=== PATIENT | male | born 1945 | race Caucasian/White ===

== ENCOUNTER 2017-11-06 16:37 | Inpatient (IN) | payer MEDICARE, OTHER ==
[2017-11-06] MEDS: IPRATROPIUM (NEB) 0.5 MG/2.5 ML AMP INH (17:04)
[2017-11-06] MEDS: ALBUTEROL 0.5% (NEB) 2.5 MG/0.5 ML AMP INH ×2 (17:04→18:30)
[2017-11-06 17:16] LABS: ADD MAN DIFF? NO
[2017-11-06 17:18] LABS: WHITE BLOOD COUNT 6.1 10^3/ul (4.8-10.8)
[2017-11-06 17:19] LABS: BASOPHILS % 0.2 % (0.0-2.0); EOSINOPHILS # 0.1 10^3/ul (0.0-0.5); EOSINOPHILS % 1.6 % (0.0-7.0); HEMATOCRIT 40.7 % (42.0-52.0); HEMOGLOBIN 12.9 g/dl (14.0-18.0); LYMPHOCYTES # 1.2 10^3/ul (0.8-2.9); LYMPHOCYTES % 18.8 % (15.0-51.0); MEAN CORPUSCULAR HEMOGLOBIN 28.7 pg (29.0-33.0); MEAN CORPUSCULAR HGB CONC 31.7 g/dl (32.0-37.0); MEAN CORPUSCULAR VOLUME 90.4 fl (82.0-101.0); MEAN PLATELET VOLUME 10.6 fl (7.4-10.4); MONOCYTES % 16.6 % (0.0-11.0); NEUTROPHIL # 3.8 10^3/ul (1.6-7.5); NEUTROPHILS % 62.3 % (39.0-77.0); PLATELET COUNT 202 10^3/UL (140-415)
[2017-11-06 17:25] LABS: ALANINE AMINOTRANSFERASE 29 IU/L (13-69); ALBUMIN 3.9 g/dl (3.3-4.9); ALKALINE PHOSPHATASE 80 IU/L (42-121); ANION GAP 18 (8-16); ASPARTATE AMINO TRANSFERASE 30 IU/L (15-46); BILIRUBIN,INDIRECT 0.1 mg/dl (0-1.1); BILIRUBIN,TOTAL 0.1 mg/dl (0.2-1.3); BLOOD UREA NITROGEN 28 mg/dl (7-20); CALCIUM 9.5 mg/dl (8.4-10.2); CARBON DIOXIDE 32 mmol/L (21-31); CHLORIDE 99 mmol/L (97-110); CREATININE 0.93 mg/dl (0.61-1.24); GLUCOSE 125 mg/dl (70-220); LIPASE 104 U/L (23-300); POTASSIUM 4.8 mmol/L (3.5-5.1); SODIUM 144 mmol/L (135-144); TOTAL PROTEIN 7.8 g/dl (6.1-8.1)
[2017-11-06 17:37] LABS: B-TYPE NATRIURETIC PEPTIDE 128 PG/ML (0-125); TROPONIN-I < 0.012 ng/ml (0.000-0.120)
[2017-11-06] MEDS: LEVOFLOXACIN 750MG/D5W (PMX) 150 ML IVPB (18:33)
[2017-11-06] MEDS: METHYLPREDNISOLONE 125 MG INJ IV (18:33)
[2017-11-06] MEDS ORDERED: GLUCOSE GEL 15 GRAM TUBE BUCCAL (22:30)
[2017-11-06] MEDS ORDERED: DEXTROSE 50% 50 ML SYRINGE IV ×2 (22:30)
[2017-11-06] MEDS ORDERED: ACETAMINOPHEN 325 MG TAB PO (22:30)
[2017-11-06] MEDS ORDERED: GLUCOSE GEL 15 GRAM TUBE PO ×2 (22:30)
[2017-11-06] MEDS ORDERED: GLUCAGON 1 MG INJ IM (22:30)
[2017-11-06] MEDS: SOD CHLORIDE 0.45% 1,000 ML IV (23:01)
[2017-11-06 23:56] LABS: AADO2 Arterial 270.2 mmHg (7.0-24.0); Allen Test ACCEPTAB; Arterial Base Excess -3.8 mmol/L (-3.0-3); Arterial COHb 0.3 % (0.0-3.0); Arterial Fraction of Oxyhgb 95.4 % (93.0-99.0); Arterial HCO3 22.2 mmol/L (22.0-26.0); Arterial MetHb 0.3 % (0.0-1.5); Arterial Total Hemglobin 13.3 g/dl (12.0-18.0); Arterial pCO2 43.8 mmhg (35-45); MODE MASK - SIMPLE; Site Right Radial
[2017-11-07] MEDS: INSULIN ASPART [NOVOLOG] 3 ML PEN SC ×5 (00:03→21:05)
[2017-11-07] MEDS: ALBUTEROL/IPRATROPIUM (NEB) 3 ML AMP HHN ×4 (01:28→21:03)
[2017-11-07] MEDS: ACCU-CHEK XX (02:04)
[2017-11-07 07:29] LABS: ANION GAP 18 (8-16); BLOOD UREA NITROGEN 25 mg/dl (7-20); CALCIUM 8.9 mg/dl (8.4-10.2); CARBON DIOXIDE 26 mmol/L (21-31); CHLORIDE 99 mmol/L (97-110); CREATININE 0.62 mg/dl (0.61-1.24); GLUCOSE 260 mg/dl (70-220); POTASSIUM 5.3 mmol/L (3.5-5.1); SODIUM 138 mmol/L (135-144)
[2017-11-07] MEDS ORDERED: LEVETIRACETAM 750 MG TAB PO (09:00)
[2017-11-07] MEDS: ASPIRIN 81 MG TAB PO (09:15)
[2017-11-07] MEDS: ARTIFICIAL TEARS 15 ML OPH BOTH EYES ×2 (09:15→20:51)
[2017-11-07] MEDS: ESCITALOPRAM 10 MG TAB PO (09:15)
[2017-11-07] MEDS: metFORMIN 500 MG TAB PO ×2 (09:15→17:38)
[2017-11-07] MEDS: MEMANTINE 10 MG TAB PO (09:15)
[2017-11-07] MEDS: METHYLPREDNISOLONE 40 MG INJ IV ×2 (09:16→20:51)
[2017-11-07] MEDS: QUETIAPINE 25 MG TAB PO (09:16)
[2017-11-07] MEDS: LEVETIRACETAM (100 MG/ML) 5ML CUP PO ×2 (09:16→20:52)
[2017-11-07] MEDS: LISINOPRIL 5 MG TAB PO (09:17)
[2017-11-07] MEDS: DILTIAZEM (CD) 180 MG CAP PO (09:17)
[2017-11-07] MEDS: ENOXAPARIN 40 MG/0.4 ML SYG SC (09:36)
[2017-11-07] MEDS ORDERED: VANCOMYCIN IV PER PHARMACY XX (11:00)
[2017-11-07] MEDS: METOPROLOL 5 MG INJ IV (12:47)
[2017-11-07] MEDS: VANCOMYCIN 2 GM in SOD CHLORIDE 0.9% 500 ML IVPB (14:00)
[2017-11-07] MEDS: MEROPENEM 1 GM/50ML(PMX) 50 ML IVPB ×2 (14:00→22:59)
[2017-11-07] MEDS: SOD CHLORIDE 0.45% 1,000 ML IV (15:36)
[2017-11-07] MEDS: FUROSEMIDE 20 MG INJ IV (16:51)
[2017-11-07] MEDS ORDERED: LEVOFLOXACIN 500MG/D5W (PMX) 100 ML IVPB (18:30)
[2017-11-07] MEDS: ATORVASTATIN 20 MG TAB PO (20:51)
[2017-11-07] MEDS: TAMSULOSIN (SR) 0.4 MG CAP PO (20:52)
[2017-11-07] MEDS: NPH, HUMAN INSULIN ISOPHANE 3ML VIAL SC (20:57)
[2017-11-07] MEDS: DONEPEZIL 10 MG TAB PO (20:58)
[2017-11-08] MEDS: ACCU-CHEK XX (02:15)
[2017-11-08] MEDS: ALBUTEROL/IPRATROPIUM (NEB) 3 ML AMP HHN ×3 (03:33→13:34)
[2017-11-08] MEDS: MEROPENEM 1 GM/50ML(PMX) 50 ML IVPB ×3 (05:15→21:16)
[2017-11-08] MEDS: metFORMIN 500 MG TAB PO ×2 (08:06→17:24)
[2017-11-08] MEDS: INSULIN ASPART [NOVOLOG] 3 ML PEN SC ×4 (08:07→21:15)
[2017-11-08] MEDS: NPH, HUMAN INSULIN ISOPHANE 3ML VIAL SC ×2 (08:10→21:17)
[2017-11-08 08:46] LABS: AADO2 Arterial 315.8 mmHg (7.0-24.0); Allen Test ACCEPTAB; Arterial Base Excess 2.6 mmol/L (-3.0-3); Arterial Blood Gas Oxygen Sat 98.2 mmHG (95.0-100.0); Arterial COHb 0.7 % (0.0-3.0); Arterial Fraction of Oxyhgb 97.1 % (93.0-99.0); Arterial HCO3 30.4 mmol/L (22.0-26.0); Arterial MetHb 0.4 % (0.0-1.5); Arterial Total Hemglobin 17.4 g/dl (12.0-18.0); Arterial pCO2 58.3 mmhg (35-45); MODE MASK - SIMPLE; Site Right Radial
[2017-11-08] MEDS ORDERED: DILTIAZEM (CD) 180 MG CAP PO (09:00)
[2017-11-08] MEDS: METHYLPREDNISOLONE 40 MG INJ IV ×2 (09:47→21:01)
[2017-11-08] MEDS: LEVETIRACETAM (100 MG/ML) 5ML CUP PO ×2 (09:48→21:01)
[2017-11-08] MEDS: QUETIAPINE 25 MG TAB PO (09:49)
[2017-11-08] MEDS: ASPIRIN 81 MG TAB PO (09:49)
[2017-11-08] MEDS: ESCITALOPRAM 10 MG TAB PO (09:49)
[2017-11-08] MEDS: MEMANTINE 10 MG TAB PO (09:49)
[2017-11-08] MEDS: LISINOPRIL 5 MG TAB PO (09:52)
[2017-11-08] MEDS: ARTIFICIAL TEARS 15 ML OPH BOTH EYES ×2 (09:52→21:01)
[2017-11-08] MEDS: ENOXAPARIN 40 MG/0.4 ML SYG SC (10:08)
[2017-11-08] MEDS: DILTIAZEM (CD) 240 MG CAP PO (11:22)
[2017-11-08] MEDS: VANCOMYCIN 1.5 GM in SOD CHLORIDE 0.9% 250 ML IVPB (13:00)
[2017-11-08] MEDS: METOPROLOL 5 MG INJ IV (16:21)
[2017-11-08] MEDS: TAMSULOSIN (SR) 0.4 MG CAP PO (21:01)
[2017-11-08] MEDS: ATORVASTATIN 20 MG TAB PO (21:01)
[2017-11-08] MEDS: DONEPEZIL 10 MG TAB PO (21:02)
[2017-11-09] MEDS: METOPROLOL 5 MG INJ IV ×3 (01:58→21:48)
[2017-11-09] MEDS: ACCU-CHEK XX (02:00)
[2017-11-09 02:42] LABS: ANION GAP 15 (8-16); BLOOD UREA NITROGEN 31 mg/dl (7-20); CALCIUM 8.9 mg/dl (8.4-10.2); CARBON DIOXIDE 29 mmol/L (21-31); CHLORIDE 103 mmol/L (97-110); CREATININE 0.67 mg/dl (0.61-1.24); GLUCOSE 185 mg/dl (70-220); POTASSIUM 5.3 mmol/L (3.5-5.1); SODIUM 142 mmol/L (135-144)
[2017-11-09] MEDS: MEROPENEM 1 GM/50ML(PMX) 50 ML IVPB ×3 (05:25→21:48)
[2017-11-09 07:13] LABS: HEMATOCRIT 37.4 % (42.0-52.0); HEMOGLOBIN 11.9 g/dl (14.0-18.0); MEAN CORPUSCULAR HEMOGLOBIN 28.1 pg (29.0-33.0); MEAN CORPUSCULAR HGB CONC 31.8 g/dl (32.0-37.0); MEAN CORPUSCULAR VOLUME 88.4 fl (82.0-101.0); MEAN PLATELET VOLUME 10.5 fl (7.4-10.4); PLATELET COUNT 214 10^3/UL (140-415); POSITIVE DIFF @See below; RED BLOOD COUNT 4.23 10^6/ul (4.70-6.10)
[2017-11-09 07:13] LABS: WHITE BLOOD COUNT 8.7 10^3/ul (4.8-10.8)
[2017-11-09 07:16] LABS: ADD MAN DIFF? YES
[2017-11-09 07:43] LABS: ANION GAP 15 (8-16); BLOOD UREA NITROGEN 30 mg/dl (7-20); CALCIUM 8.9 mg/dl (8.4-10.2); CARBON DIOXIDE 31 mmol/L (21-31); CHLORIDE 102 mmol/L (97-110); CREATININE 0.62 mg/dl (0.61-1.24); GLUCOSE 178 mg/dl (70-220); POTASSIUM 5.3 mmol/L (3.5-5.1); SODIUM 143 mmol/L (135-144)
[2017-11-09] MEDS: DILTIAZEM (CD) 240 MG CAP PO (08:13)
[2017-11-09] MEDS: ALBUTEROL/IPRATROPIUM (NEB) 3 ML AMP HHN ×3 (08:13→20:45)
[2017-11-09] MEDS: QUETIAPINE 25 MG TAB PO (08:13)
[2017-11-09] MEDS: MEMANTINE 10 MG TAB PO (08:13)
[2017-11-09] MEDS: LISINOPRIL 5 MG TAB PO (08:13)
[2017-11-09] MEDS: metFORMIN 500 MG TAB PO ×2 (08:14→18:05)
[2017-11-09] MEDS: ESCITALOPRAM 10 MG TAB PO (08:14)
[2017-11-09] MEDS: ASPIRIN 81 MG TAB PO (08:14)
[2017-11-09] MEDS: ARTIFICIAL TEARS 15 ML OPH BOTH EYES ×2 (08:15→21:31)
[2017-11-09] MEDS: METHYLPREDNISOLONE 40 MG INJ IV ×2 (08:15→21:31)
[2017-11-09] MEDS: LEVETIRACETAM (100 MG/ML) 5ML CUP PO ×2 (08:17→21:30)
[2017-11-09] MEDS: INSULIN ASPART [NOVOLOG] 3 ML PEN SC ×4 (08:21→21:41)
[2017-11-09] MEDS: ENOXAPARIN 40 MG/0.4 ML SYG SC (08:22)
[2017-11-09] MEDS: NPH, HUMAN INSULIN ISOPHANE 3ML VIAL SC ×2 (08:22→21:42)
[2017-11-09 09:53] LABS: BAND NEUTROPHILS #M 0.6 10^3/ul (0.0-0.6); BAND NEUTROPHILS % (M) 8 % (0-4); GIANT THROMBO% (M) 1 % (0-0); LYMPHOCYTES #M 0.5 10^3/ul (0.8-2.9); LYMPHOCYTES % (M) 6 % (15-51); MONOCYTE #M 0.6 10^3/ul (0.3-0.9); MONOCYTES % (M) 7 % (0-11); PLATELET ESTIMATE NORMAL; POIKILOCYTOSIS 1+ (0-0); POLYCHROMASIA 1+ (0-0); SEG NEUT #M 6.9 10^3/ul (1.6-7.5); SEGMENTED NEUTROPHILS (M) % 79 % (39-77); SMUDGE%M 75 % (0-0)
[2017-11-09] MEDS: VANCOMYCIN 1.5 GM in SOD CHLORIDE 0.9% 250 ML IVPB (12:13)
[2017-11-09] MEDS: ATORVASTATIN 20 MG TAB PO (21:30)
[2017-11-09] MEDS: TAMSULOSIN (SR) 0.4 MG CAP PO (21:30)
[2017-11-09] MEDS: DONEPEZIL 10 MG TAB PO (21:30)
[2017-11-10] MEDS: ALBUTEROL/IPRATROPIUM (NEB) 3 ML AMP HHN ×4 (01:55→19:25)
[2017-11-10] MEDS: ACCU-CHEK XX (02:00)
[2017-11-10] MEDS: GUAIFENESIN/CODEINE 5ML CUP PO (03:11)
[2017-11-10] MEDS: MEROPENEM 1 GM/50ML(PMX) 50 ML IVPB ×3 (05:31→21:25)
[2017-11-10 07:32] LABS: ADD MAN DIFF? NO
[2017-11-10 07:42] LABS: BASOPHILS % 0.4 % (0.0-2.0); HEMATOCRIT 36.4 % (42.0-52.0); HEMOGLOBIN 11.5 g/dl (14.0-18.0); LYMPHOCYTES # 0.9 10^3/ul (0.8-2.9); LYMPHOCYTES % 11.7 % (15.0-51.0); MEAN CORPUSCULAR HEMOGLOBIN 27.6 pg (29.0-33.0); MEAN CORPUSCULAR HGB CONC 31.6 g/dl (32.0-37.0); MEAN CORPUSCULAR VOLUME 87.5 fl (82.0-101.0); MEAN PLATELET VOLUME 9.9 fl (7.4-10.4); MONOCYTE # 0.7 10^3/ul (0.3-0.9); MONOCYTES % 9.2 % (0.0-11.0); NEUTROPHIL # 5.9 10^3/ul (1.6-7.5); NEUTROPHILS % 74.3 % (39.0-77.0); PLATELET COUNT 212 10^3/UL (140-415); RED BLOOD COUNT 4.16 10^6/ul (4.70-6.10); RED CELL DISTRIBUTION WIDTH 15.1 % (11.5-14.5)
[2017-11-10 07:57] LABS: AADO2 Arterial 224.5 mmHg (7.0-24.0); Allen Test ACCEPTAB; Arterial Base Excess 4.2 mmol/L (-3.0-3); Arterial Blood Gas Oxygen Sat 97.4 mmHG (95.0-100.0); Arterial COHb 0.3 % (0.0-3.0); Arterial HCO3 29.3 mmol/L (22.0-26.0); Arterial MetHb 0.1 % (0.0-1.5); Arterial Total Hemglobin 12.5 g/dl (12.0-18.0); Arterial pCO2 45.4 mmhg (35-45); MODE MASK - SIMPLE; Site Right Radial
[2017-11-10 08:02] LABS: ANION GAP 13 (8-16); BLOOD UREA NITROGEN 27 mg/dl (7-20); CALCIUM 8.9 mg/dl (8.4-10.2); CARBON DIOXIDE 31 mmol/L (21-31); CHLORIDE 100 mmol/L (97-110); CREATININE 0.61 mg/dl (0.61-1.24); GLUCOSE 195 mg/dl (70-220); MAGNESIUM 1.8 mg/dl (1.7-2.5); PHOSPHORUS 3.8 mg/dl (2.5-4.9); SODIUM 139 mmol/L (135-144)
[2017-11-10] MEDS: METHYLPREDNISOLONE 40 MG INJ IV ×2 (08:31→20:27)
[2017-11-10] MEDS: LEVETIRACETAM (100 MG/ML) 5ML CUP PO ×2 (08:32→20:26)
[2017-11-10] MEDS: DILTIAZEM (CD) 240 MG CAP PO (08:32)
[2017-11-10] MEDS: ESCITALOPRAM 10 MG TAB PO (08:33)
[2017-11-10] MEDS: LISINOPRIL 5 MG TAB PO (08:33)
[2017-11-10] MEDS: MEMANTINE 10 MG TAB PO (08:33)
[2017-11-10] MEDS: metFORMIN 500 MG TAB PO ×2 (08:33→17:27)
[2017-11-10] MEDS: ASPIRIN 81 MG TAB PO (08:33)
[2017-11-10] MEDS: QUETIAPINE 25 MG TAB PO (08:33)
[2017-11-10] MEDS: ARTIFICIAL TEARS 15 ML OPH BOTH EYES ×2 (08:34→20:27)
[2017-11-10] MEDS: ENOXAPARIN 40 MG/0.4 ML SYG SC (08:45)
[2017-11-10] MEDS: INSULIN ASPART [NOVOLOG] 3 ML PEN SC ×4 (08:46→20:42)
[2017-11-10] MEDS: NPH, HUMAN INSULIN ISOPHANE 3ML VIAL SC ×2 (08:46→20:43)
[2017-11-10] MEDS: METOPROLOL 5 MG INJ IV ×3 (09:04→23:29)
[2017-11-10 12:19] LABS: VANCOMYCIN,TROUGH < 5.0 ug/ml (10.0-20.0)
[2017-11-10] MEDS: VANCOMYCIN 1 GM 250 ML IVPB (14:48)
[2017-11-10] MEDS: TAMSULOSIN (SR) 0.4 MG CAP PO (20:26)
[2017-11-10] MEDS: DONEPEZIL 10 MG TAB PO (20:26)
[2017-11-10] MEDS: ATORVASTATIN 20 MG TAB PO (20:27)
[2017-11-10] MEDS: DILTIAZEM (CD) 180 MG CAP PO (20:27)
[2017-11-11] MEDS: ALBUTEROL/IPRATROPIUM (NEB) 3 ML AMP HHN ×2 (01:00→08:48)
[2017-11-11] MEDS: ACCU-CHEK XX (02:26)
[2017-11-11] MEDS: VANCOMYCIN 1 GM 250 ML IVPB ×2 (02:28→14:04)
[2017-11-11] MEDS: MEROPENEM 1 GM/50ML(PMX) 50 ML IVPB ×3 (05:51→21:00)
[2017-11-11 06:34] LABS: ADD MAN DIFF? NO
[2017-11-11 06:40] LABS: ABNORMAL IP MESSAGE 1; BASOPHIL # 0.1 10^3/ul (0.0-0.1); BASOPHILS % 0.9 % (0.0-2.0); HEMATOCRIT 37.5 % (42.0-52.0); HEMOGLOBIN 11.8 g/dl (14.0-18.0); LYMPHOCYTES % 11.4 % (15.0-51.0); MEAN CORPUSCULAR HGB CONC 31.5 g/dl (32.0-37.0); MEAN CORPUSCULAR VOLUME 89.1 fl (82.0-101.0); MEAN PLATELET VOLUME 9.7 fl (7.4-10.4); MONOCYTE # 0.7 10^3/ul (0.3-0.9); MONOCYTES % 7.9 % (0.0-11.0); NEUTROPHIL # 6.3 10^3/ul (1.6-7.5); NUCLEATED RED BLOOD CELLS% 0.2 /100WBC (0.0-0.0); PLATELET COUNT 235 10^3/UL (140-415); POSITIVE DIFF @See below; RED BLOOD COUNT 4.21 10^6/ul (4.70-6.10); RED CELL DISTRIBUTION WIDTH 14.6 % (11.5-14.5)
[2017-11-11 06:40] LABS: WHITE BLOOD COUNT 8.7 10^3/ul (4.8-10.8)
[2017-11-11 07:05] LABS: ANION GAP 14 (8-16); BLOOD UREA NITROGEN 22 mg/dl (7-20); CALCIUM 8.7 mg/dl (8.4-10.2); CARBON DIOXIDE 33 mmol/L (21-31); CHLORIDE 96 mmol/L (97-110); CREATININE 0.58 mg/dl (0.61-1.24); GLUCOSE 192 mg/dl (70-220); POTASSIUM 4.8 mmol/L (3.5-5.1); SODIUM 138 mmol/L (135-144)
[2017-11-11] MEDS: METHYLPREDNISOLONE 40 MG INJ IV (09:24)
[2017-11-11] MEDS: QUETIAPINE 25 MG TAB PO (09:25)
[2017-11-11] MEDS: metFORMIN 500 MG TAB PO ×2 (09:25→19:00)
[2017-11-11] MEDS: ESCITALOPRAM 10 MG TAB PO (09:25)
[2017-11-11] MEDS: ASPIRIN 81 MG TAB PO (09:25)
[2017-11-11] MEDS: DILTIAZEM (CD) 180 MG CAP PO ×2 (09:26→20:40)
[2017-11-11] MEDS: LEVETIRACETAM (100 MG/ML) 5ML CUP PO ×2 (09:27→20:38)
[2017-11-11] MEDS: MEMANTINE 10 MG TAB PO (09:27)
[2017-11-11] MEDS: LISINOPRIL 5 MG TAB PO (09:27)
[2017-11-11] MEDS: ARTIFICIAL TEARS 15 ML OPH BOTH EYES ×2 (09:28→20:38)
[2017-11-11] MEDS: INSULIN ASPART [NOVOLOG] 3 ML PEN SC ×4 (09:33→20:48)
[2017-11-11] MEDS: ENOXAPARIN 40 MG/0.4 ML SYG SC (09:33)
[2017-11-11] MEDS: NPH, HUMAN INSULIN ISOPHANE 3ML VIAL SC (09:33)
[2017-11-11] MEDS: IPRATROPIUM (HFA) 12.9 GM INHALER INH ×3 (12:00→20:38)
[2017-11-11] MEDS: DIGOXIN 0.125 MG TAB PO (14:04)
[2017-11-11] MEDS: DONEPEZIL 10 MG TAB PO (20:40)
[2017-11-11] MEDS: TAMSULOSIN (SR) 0.4 MG CAP PO (20:40)
[2017-11-11] MEDS: ATORVASTATIN 20 MG TAB PO (20:40)
[2017-11-12] MEDS: VANCOMYCIN 1 GM 250 ML IVPB ×3 (01:43→23:38)
[2017-11-12] MEDS: ACCU-CHEK XX (01:45)
[2017-11-12] MEDS: MEROPENEM 1 GM/50ML(PMX) 50 ML IVPB ×3 (05:30→21:53)
[2017-11-12] MEDS: INSULIN ASPART [NOVOLOG] 3 ML PEN SC ×4 (07:55→20:24)
[2017-11-12] MEDS: metFORMIN 500 MG TAB PO ×2 (08:12→17:39)
[2017-11-12] MEDS: ASPIRIN 81 MG TAB PO (08:13)
[2017-11-12] MEDS: MEMANTINE 10 MG TAB PO (08:14)
[2017-11-12] MEDS: ESCITALOPRAM 10 MG TAB PO (08:14)
[2017-11-12] MEDS: QUETIAPINE 25 MG TAB PO (08:14)
[2017-11-12] MEDS: LISINOPRIL 5 MG TAB PO (08:15)
[2017-11-12] MEDS: ARTIFICIAL TEARS 15 ML OPH BOTH EYES ×2 (08:15→20:20)
[2017-11-12] MEDS: METHYLPREDNISOLONE 40 MG INJ IV (08:25)
[2017-11-12] MEDS: LEVETIRACETAM (100 MG/ML) 5ML CUP PO ×2 (08:26→20:20)
[2017-11-12] MEDS: ENOXAPARIN 40 MG/0.4 ML SYG SC (08:30)
[2017-11-12] MEDS: NPH, HUMAN INSULIN ISOPHANE 3ML VIAL SC (08:37)
[2017-11-12] MEDS: DILTIAZEM (CD) 180 MG CAP PO ×3 (09:00→20:27)
[2017-11-12] MEDS: IPRATROPIUM (HFA) 12.9 GM INHALER INH ×4 (10:05→21:57)
[2017-11-12] MEDS: DIGOXIN 0.125 MG TAB PO (13:00)
[2017-11-12] MEDS: FUROSEMIDE 40 MG INJ IV (14:13)
[2017-11-12 14:33] LABS: VANCOMYCIN,TROUGH 7.2 ug/ml (10.0-20.0)
[2017-11-12] MEDS: ATORVASTATIN 20 MG TAB PO (20:21)
[2017-11-12] MEDS: TAMSULOSIN (SR) 0.4 MG CAP PO (20:21)
[2017-11-12] MEDS: DONEPEZIL 10 MG TAB PO (20:21)
[2017-11-12] MEDS: DOCUSATE SODIUM 100 MG CAP PO (20:26)
[2017-11-13] MEDS: ACCU-CHEK XX (02:00)
[2017-11-13] MEDS: MEROPENEM 1 GM/50ML(PMX) 50 ML IVPB ×3 (05:40→21:21)
[2017-11-13] MEDS: VANCOMYCIN 1 GM 250 ML IVPB (06:20)
[2017-11-13 07:23] LABS: ABNORMAL IP MESSAGE 1; HEMATOCRIT 39.2 % (42.0-52.0); HEMOGLOBIN 12.7 g/dl (14.0-18.0); MEAN CORPUSCULAR HEMOGLOBIN 28.3 pg (29.0-33.0); MEAN CORPUSCULAR HGB CONC 32.4 g/dl (32.0-37.0); MEAN CORPUSCULAR VOLUME 87.5 fl (82.0-101.0); MEAN PLATELET VOLUME 9.8 fl (7.4-10.4); NUCLEATED RED BLOOD CELLS% 0.2 /100WBC (0.0-0.0); PLATELET COUNT 257 10^3/UL (140-415); POSITIVE DIFF @See below; RED BLOOD COUNT 4.48 10^6/ul (4.70-6.10)
[2017-11-13 07:23] LABS: WHITE BLOOD COUNT 12.2 10^3/ul (4.8-10.8)
[2017-11-13 07:33] LABS: ADD MAN DIFF? YES
[2017-11-13] MEDS: INSULIN ASPART [NOVOLOG] 3 ML PEN SC ×4 (07:55→20:14)
[2017-11-13 07:58] LABS: ANION GAP 8 (8-16); BLOOD UREA NITROGEN 22 mg/dl (7-20); CALCIUM 8.8 mg/dl (8.4-10.2); CARBON DIOXIDE 36 mmol/L (21-31); CHLORIDE 94 mmol/L (97-110); CREATININE 0.59 mg/dl (0.61-1.24); GLUCOSE 97 mg/dl (70-220); MAGNESIUM 1.6 mg/dl (1.7-2.5); PHOSPHORUS 4.1 mg/dl (2.5-4.9); POTASSIUM 4.4 mmol/L (3.5-5.1); SODIUM 134 mmol/L (135-144)
[2017-11-13] MEDS: IPRATROPIUM (HFA) 12.9 GM INHALER INH ×4 (08:00→20:04)
[2017-11-13 08:48] LABS: GIANT THROMBO% (M) 1 % (0-0); LYMPHOCYTES #M 1.3 10^3/ul (0.8-2.9); LYMPHOCYTES % (M) 11 % (15-51); MONOCYTE #M 0.8 10^3/ul (0.3-0.9); MONOCYTES % (M) 7 % (0-11); MYELOCYTES #M 0.2 10^3/ul (0.0-0.0); MYELOCYTES % (M) 2 % (0-0); PLATELET ESTIMATE NORMAL; SEGMENTED NEUTROPHILS (M) % 80 % (39-77); SMUDGE%M 1 % (0-0)
[2017-11-13] MEDS: ASPIRIN 81 MG TAB PO (09:49)
[2017-11-13] MEDS: MEMANTINE 10 MG TAB PO (09:49)
[2017-11-13] MEDS: LEVETIRACETAM (100 MG/ML) 5ML CUP PO ×2 (09:49→20:05)
[2017-11-13] MEDS: metFORMIN 500 MG TAB PO ×2 (09:49→17:06)
[2017-11-13] MEDS: QUETIAPINE 25 MG TAB PO (09:50)
[2017-11-13] MEDS: ESCITALOPRAM 10 MG TAB PO (09:50)
[2017-11-13] MEDS: DOCUSATE SODIUM 100 MG CAP PO ×2 (09:50→20:44)
[2017-11-13] MEDS: DILTIAZEM (CD) 180 MG CAP PO ×2 (09:51→20:06)
[2017-11-13] MEDS: FUROSEMIDE 40 MG INJ IV (09:52)
[2017-11-13] MEDS: LISINOPRIL 5 MG TAB PO (09:52)
[2017-11-13] MEDS: ENOXAPARIN 40 MG/0.4 ML SYG SC (10:05)
[2017-11-13 10:50] LABS: AADO2 Arterial 98.5 mmHg (7.0-24.0); Allen Test ACCEPTAB; Arterial Base Excess 7.7 mmol/L (-3.0-3); Arterial COHb 0.7 % (0.0-3.0); Arterial Fraction of Oxyhgb 91.2 % (93.0-99.0); Arterial HCO3 32.3 mmol/L (22.0-26.0); Arterial MetHb 0.2 % (0.0-1.5); Arterial pCO2 44.8 mmhg (35-45); MODE NASAL CANNULA; Site Right Radial
[2017-11-13] MEDS: ARTIFICIAL TEARS 15 ML OPH BOTH EYES ×2 (11:59→20:45)
[2017-11-13] MEDS: METHYLPREDNISOLONE 40 MG INJ IV (13:29)
[2017-11-13] MEDS: NPH, HUMAN INSULIN ISOPHANE 3ML VIAL SC (15:05)
[2017-11-13] MEDS: DONEPEZIL 10 MG TAB PO (20:05)
[2017-11-13] MEDS: ATORVASTATIN 20 MG TAB PO (20:05)
[2017-11-13] MEDS: TAMSULOSIN (SR) 0.4 MG CAP PO (20:05)
[2017-11-14] MEDS: ACCU-CHEK XX (02:00)
[2017-11-14] MEDS: GUAIFENESIN/CODEINE 5ML CUP PO ×2 (02:30→23:39)
[2017-11-14] MEDS: MEROPENEM 1 GM/50ML(PMX) 50 ML IVPB ×3 (05:37→21:32)
[2017-11-14] MEDS: INSULIN ASPART [NOVOLOG] 3 ML PEN SC ×4 (07:55→20:08)
[2017-11-14] MEDS: IPRATROPIUM (HFA) 12.9 GM INHALER INH ×4 (08:24→20:01)
[2017-11-14] MEDS: ASPIRIN 81 MG TAB PO (08:25)
[2017-11-14] MEDS: MEMANTINE 10 MG TAB PO (08:25)
[2017-11-14] MEDS: DILTIAZEM (CD) 180 MG CAP PO ×2 (08:26→20:03)
[2017-11-14] MEDS: QUETIAPINE 25 MG TAB PO (08:27)
[2017-11-14] MEDS: LISINOPRIL 5 MG TAB PO (08:27)
[2017-11-14] MEDS: DOCUSATE SODIUM 100 MG CAP PO ×2 (08:27→20:02)
[2017-11-14] MEDS: ESCITALOPRAM 10 MG TAB PO (08:27)
[2017-11-14] MEDS: LEVETIRACETAM (100 MG/ML) 5ML CUP PO ×2 (08:28→20:02)
[2017-11-14] MEDS: FUROSEMIDE 40 MG INJ IV (08:28)
[2017-11-14] MEDS: METHYLPREDNISOLONE 40 MG INJ IV (08:29)
[2017-11-14] MEDS: ARTIFICIAL TEARS 15 ML OPH BOTH EYES ×2 (08:29→20:02)
[2017-11-14] MEDS: metFORMIN 500 MG TAB PO ×2 (08:37→17:41)
[2017-11-14] MEDS: ENOXAPARIN 40 MG/0.4 ML SYG SC (08:56)
[2017-11-14] MEDS: NPH, HUMAN INSULIN ISOPHANE 3ML VIAL SC (08:57)
[2017-11-14] MEDS: DONEPEZIL 10 MG TAB PO (20:02)
[2017-11-14] MEDS: ATORVASTATIN 20 MG TAB PO (20:02)
[2017-11-14] MEDS: TAMSULOSIN (SR) 0.4 MG CAP PO (20:02)
[2017-11-15] MEDS: ACCU-CHEK XX (02:00)
[2017-11-15] MEDS: MEROPENEM 1 GM/50ML(PMX) 50 ML IVPB ×3 (05:51→22:07)
[2017-11-15 06:00] LABS: ADD MAN DIFF? NO
[2017-11-15 06:09] LABS: BASOPHIL # 0.1 10^3/ul (0.0-0.1); BASOPHILS % 0.5 % (0.0-2.0); HEMATOCRIT 42.5 % (42.0-52.0); HEMOGLOBIN 13.8 g/dl (14.0-18.0); LYMPHOCYTES # 1.6 10^3/ul (0.8-2.9); LYMPHOCYTES % 10.5 % (15.0-51.0); MEAN CORPUSCULAR HGB CONC 32.5 g/dl (32.0-37.0); MEAN CORPUSCULAR VOLUME 86.2 fl (82.0-101.0); MEAN PLATELET VOLUME 10.2 fl (7.4-10.4); MONOCYTES % 6.5 % (0.0-11.0); NEUTROPHIL # 11.4 10^3/ul (1.6-7.5); NEUTROPHILS % 77.8 % (39.0-77.0); PLATELET COUNT 265 10^3/UL (140-415); RED BLOOD COUNT 4.93 10^6/ul (4.70-6.10)
[2017-11-15 06:09] LABS: WHITE BLOOD COUNT 14.7 10^3/ul (4.8-10.8)
[2017-11-15 06:33] LABS: ANION GAP 10 (8-16); BLOOD UREA NITROGEN 28 mg/dl (7-20); CARBON DIOXIDE 36 mmol/L (21-31); CHLORIDE 92 mmol/L (97-110); CREATININE 0.57 mg/dl (0.61-1.24); GLUCOSE 159 mg/dl (70-220); POTASSIUM 4.9 mmol/L (3.5-5.1); SODIUM 133 mmol/L (135-144)
[2017-11-15] MEDS: INSULIN ASPART [NOVOLOG] 3 ML PEN SC ×4 (07:55→20:25)
[2017-11-15] MEDS: DOCUSATE SODIUM 100 MG CAP PO ×2 (08:09→20:24)
[2017-11-15] MEDS: QUETIAPINE 25 MG TAB PO (08:09)
[2017-11-15] MEDS: ESCITALOPRAM 10 MG TAB PO (08:09)
[2017-11-15] MEDS: LISINOPRIL 5 MG TAB PO (08:10)
[2017-11-15] MEDS: ASPIRIN 81 MG TAB PO (08:10)
[2017-11-15] MEDS: DILTIAZEM (CD) 180 MG CAP PO ×2 (08:10→20:24)
[2017-11-15] MEDS: LEVETIRACETAM (100 MG/ML) 5ML CUP PO ×2 (08:11→20:23)
[2017-11-15] MEDS: metFORMIN 500 MG TAB PO ×2 (08:11→17:36)
[2017-11-15] MEDS: MEMANTINE 10 MG TAB PO (08:11)
[2017-11-15] MEDS: METHYLPREDNISOLONE 40 MG INJ IV (08:13)
[2017-11-15] MEDS: FUROSEMIDE 40 MG INJ IV (08:13)
[2017-11-15] MEDS: IPRATROPIUM (HFA) 12.9 GM INHALER INH ×4 (08:26→20:23)
[2017-11-15] MEDS: NPH, HUMAN INSULIN ISOPHANE 3ML VIAL SC (08:58)
[2017-11-15] MEDS: ENOXAPARIN 40 MG/0.4 ML SYG SC (08:58)
[2017-11-15] MEDS: ARTIFICIAL TEARS 15 ML OPH BOTH EYES ×2 (09:17→20:23)
[2017-11-15] MEDS: ATORVASTATIN 20 MG TAB PO (20:24)
[2017-11-15] MEDS: DONEPEZIL 10 MG TAB PO (20:24)
[2017-11-15] MEDS: TAMSULOSIN (SR) 0.4 MG CAP PO (20:24)
[2017-11-16] MEDS: ACCU-CHEK XX (01:47)
[2017-11-16] MEDS: GUAIFENESIN/CODEINE 5ML CUP PO (04:59)
[2017-11-16] MEDS: MEROPENEM 1 GM/50ML(PMX) 50 ML IVPB ×3 (05:06→20:29)
[2017-11-16 06:49] LABS: ADD MAN DIFF? NO
[2017-11-16 06:56] LABS: WHITE BLOOD COUNT 14.5 10^3/ul (4.8-10.8)
[2017-11-16 06:56] LABS: BASOPHIL # 0.1 10^3/ul (0.0-0.1); BASOPHILS % 0.3 % (0.0-2.0); HEMATOCRIT 43.6 % (42.0-52.0); HEMOGLOBIN 14.5 g/dl (14.0-18.0); LYMPHOCYTES # 1.3 10^3/ul (0.8-2.9); MEAN CORPUSCULAR HEMOGLOBIN 28.8 pg (29.0-33.0); MEAN CORPUSCULAR HGB CONC 33.3 g/dl (32.0-37.0); MEAN CORPUSCULAR VOLUME 86.5 fl (82.0-101.0); MEAN PLATELET VOLUME 10.2 fl (7.4-10.4); MONOCYTE # 0.9 10^3/ul (0.3-0.9); MONOCYTES % 6.4 % (0.0-11.0); NEUTROPHIL # 11.8 10^3/ul (1.6-7.5); NEUTROPHILS % 81.4 % (39.0-77.0); PLATELET COUNT 296 10^3/UL (140-415); RED BLOOD COUNT 5.04 10^6/ul (4.70-6.10); RED CELL DISTRIBUTION WIDTH 14.2 % (11.5-14.5)
[2017-11-16 07:37] LABS: ANION GAP 13 (8-16); BLOOD UREA NITROGEN 24 mg/dl (7-20); CALCIUM 8.8 mg/dl (8.4-10.2); CARBON DIOXIDE 33 mmol/L (21-31); CHLORIDE 91 mmol/L (97-110); CREATININE 0.55 mg/dl (0.61-1.24); GLUCOSE 120 mg/dl (70-220); POTASSIUM 4.1 mmol/L (3.5-5.1); SODIUM 133 mmol/L (135-144)
[2017-11-16] MEDS: INSULIN ASPART [NOVOLOG] 3 ML PEN SC ×4 (07:55→20:23)
[2017-11-16] MEDS: IPRATROPIUM (HFA) 12.9 GM INHALER INH ×4 (08:00→20:22)
[2017-11-16] MEDS: METHYLPREDNISOLONE 40 MG INJ IV (08:01)
[2017-11-16] MEDS: FUROSEMIDE 40 MG INJ IV (08:01)
[2017-11-16] MEDS: LISINOPRIL 5 MG TAB PO (08:02)
[2017-11-16] MEDS: MEMANTINE 10 MG TAB PO (08:02)
[2017-11-16] MEDS: DILTIAZEM (CD) 180 MG CAP PO ×2 (08:02→20:25)
[2017-11-16] MEDS: LEVETIRACETAM (100 MG/ML) 5ML CUP PO ×2 (08:02→20:24)
[2017-11-16] MEDS: ARTIFICIAL TEARS 15 ML OPH BOTH EYES ×2 (08:03→20:26)
[2017-11-16] MEDS: DOCUSATE SODIUM 100 MG CAP PO ×3 (08:03→22:26)
[2017-11-16] MEDS: ESCITALOPRAM 10 MG TAB PO (08:03)
[2017-11-16] MEDS: metFORMIN 500 MG TAB PO ×2 (08:03→17:20)
[2017-11-16] MEDS: QUETIAPINE 25 MG TAB PO (08:03)
[2017-11-16] MEDS: ASPIRIN 81 MG TAB PO (08:03)
[2017-11-16] MEDS: NPH, HUMAN INSULIN ISOPHANE 3ML VIAL SC (08:15)
[2017-11-16] MEDS: ENOXAPARIN 40 MG/0.4 ML SYG SC (08:15)
[2017-11-16] MEDS: TAMSULOSIN (SR) 0.4 MG CAP PO (20:23)
[2017-11-16] MEDS: DONEPEZIL 10 MG TAB PO (20:25)
[2017-11-16] MEDS: ATORVASTATIN 20 MG TAB PO (20:28)
[2017-11-17] MEDS: ACCU-CHEK XX (02:00)
[2017-11-17] MEDS: MEROPENEM 1 GM/50ML(PMX) 50 ML IVPB ×2 (05:25→14:20)
[2017-11-17 06:52] LABS: ADD MAN DIFF? NO
[2017-11-17 06:58] LABS: BASOPHILS % 0.3 % (0.0-2.0); HEMATOCRIT 41.3 % (42.0-52.0); HEMOGLOBIN 13.6 g/dl (14.0-18.0); LYMPHOCYTES % 8.5 % (15.0-51.0); MEAN CORPUSCULAR HEMOGLOBIN 28.2 pg (29.0-33.0); MEAN CORPUSCULAR HGB CONC 32.9 g/dl (32.0-37.0); MEAN CORPUSCULAR VOLUME 85.5 fl (82.0-101.0); MEAN PLATELET VOLUME 10.2 fl (7.4-10.4); MONOCYTE # 0.9 10^3/ul (0.3-0.9); MONOCYTES % 7.4 % (0.0-11.0); NEUTROPHIL # 9.7 10^3/ul (1.6-7.5); NEUTROPHILS % 82.2 % (39.0-77.0); PLATELET COUNT 297 10^3/UL (140-415); RED BLOOD COUNT 4.83 10^6/ul (4.70-6.10); RED CELL DISTRIBUTION WIDTH 14.1 % (11.5-14.5)
[2017-11-17 06:58] LABS: WHITE BLOOD COUNT 11.8 10^3/ul (4.8-10.8)
[2017-11-17] MEDS: INSULIN ASPART [NOVOLOG] 3 ML PEN SC ×3 (07:55→17:24)
[2017-11-17] MEDS: LEVETIRACETAM (100 MG/ML) 5ML CUP PO (08:00)
[2017-11-17] MEDS: LISINOPRIL 5 MG TAB PO (08:01)
[2017-11-17] MEDS: ESCITALOPRAM 10 MG TAB PO (08:01)
[2017-11-17] MEDS: metFORMIN 500 MG TAB PO ×2 (08:01→17:19)
[2017-11-17] MEDS: METHYLPREDNISOLONE 40 MG INJ IV (08:01)
[2017-11-17] MEDS: QUETIAPINE 25 MG TAB PO (08:01)
[2017-11-17] MEDS: FUROSEMIDE 40 MG INJ IV (08:01)
[2017-11-17] MEDS: DOCUSATE SODIUM 100 MG CAP PO (08:02)
[2017-11-17] MEDS: ARTIFICIAL TEARS 15 ML OPH BOTH EYES (08:02)
[2017-11-17] MEDS: MEMANTINE 10 MG TAB PO (08:02)
[2017-11-17] MEDS: ASPIRIN 81 MG TAB PO (08:02)
[2017-11-17] MEDS: DILTIAZEM (CD) 180 MG CAP PO (08:02)
[2017-11-17] MEDS: IPRATROPIUM (HFA) 12.9 GM INHALER INH ×3 (08:03→16:00)
[2017-11-17 08:04] LABS: ANION GAP 13 (8-16); BLOOD UREA NITROGEN 28 mg/dl (7-20); CALCIUM 8.7 mg/dl (8.4-10.2); CARBON DIOXIDE 33 mmol/L (21-31); CHLORIDE 90 mmol/L (97-110); CREATININE 0.61 mg/dl (0.61-1.24); GLUCOSE 164 mg/dl (70-220); POTASSIUM 4.2 mmol/L (3.5-5.1); SODIUM 132 mmol/L (135-144)
[2017-11-17] MEDS: NPH, HUMAN INSULIN ISOPHANE 3ML VIAL SC (08:12)
[2017-11-17] MEDS: ENOXAPARIN 40 MG/0.4 ML SYG SC (08:14)
== END 2017-11-17 17:44 | DRG 189 ==
LOC: TEL 11-12 22:30 → E/R 16:37 → TEL 18:29
DX: J96.01 Acute respiratory failure with hypoxia (principal); A41.9 Sepsis, unspecified organism; J18.9 Pneumonia, unspecified organism; G93.40 Encephalopathy, unspecified; J44.1 Chronic obstructive pulmonary disease with (acute) exacerbation; F02.81 Dementia in other diseases classified elsewhere, unspecified severity, with behavioral disturbance; I47.1 Supraventricular tachycardia; E87.5 Hyperkalemia; E11.9 Type 2 diabetes mellitus without complications; E78.5 Hyperlipidemia, unspecified; F31.9 Bipolar disorder, unspecified; G30.9 Alzheimer's disease, unspecified; G40.909 Epilepsy, unspecified, not intractable, without status epilepticus; I10 Essential (primary) hypertension; J20.9 Acute bronchitis, unspecified; R79.89 Other specified abnormal findings of blood chemistry; E66.9 Obesity, unspecified; Z68.34 Body mass index [BMI] 34.0-34.9, adult; Z86.73 Personal history of transient ischemic attack (TIA), and cerebral infarction without residual deficits; Z93.3 Colostomy status; Z74.01 Bed confinement status; Z79.84 Long term (current) use of oral hypoglycemic drugs; Z79.82 Long term (current) use of aspirin
CPT/HCPCS: 36415; 36600; 71045; 71250; 80048; 80053; 80202; 82803; 82962; 83690; 83735; 83880; 84100; 84484; 85025; 87040; 87081; 87086; 93005; 93306; 93970; 94640; 94644; 94645; 94664; 99285-25

== ENCOUNTER 2017-12-23 11:57 | Inpatient (IN) | payer MEDICARE, OTHER ==
[2017-12-23 12:44] LABS: ADD MAN DIFF? NO
[2017-12-23 12:45] LABS: WHITE BLOOD COUNT 5.7 10^3/ul (4.8-10.8)
[2017-12-23 12:45] LABS: BASOPHILS % 0.7 % (0.0-2.0); EOSINOPHILS % 0.7 % (0.0-7.0); HEMATOCRIT 35.6 % (42.0-52.0); HEMOGLOBIN 11.3 g/dl (14.0-18.0); LYMPHOCYTES # 1.2 10^3/ul (0.8-2.9); LYMPHOCYTES % 20.7 % (15.0-51.0); MEAN CORPUSCULAR HEMOGLOBIN 28.5 pg (29.0-33.0); MEAN CORPUSCULAR HGB CONC 31.7 g/dl (32.0-37.0); MEAN CORPUSCULAR VOLUME 89.9 fl (82.0-101.0); MEAN PLATELET VOLUME 9.7 fl (7.4-10.4); MONOCYTE # 0.6 10^3/ul (0.3-0.9); MONOCYTES % 10.7 % (0.0-11.0); NEUTROPHIL # 3.7 10^3/ul (1.6-7.5); NEUTROPHILS % 64.6 % (39.0-77.0); PLATELET COUNT 283 10^3/UL (140-415); RED BLOOD COUNT 3.96 10^6/ul (4.70-6.10); RED CELL DISTRIBUTION WIDTH 15.8 % (11.5-14.5)
[2017-12-23] MEDS: SOD CHLORIDE 0.9% 1,000 ML IV (13:00)
[2017-12-23 13:35] LABS: INR 1.08; PROTIME 14.1 Sec (11.9-14.9); PT RATIO 1.1
[2017-12-23 13:36] LABS: PARTIAL THROMBOPLASTIN TIME 34.4 Sec (23.0-35.0)
[2017-12-23 13:38] LABS: ADD UMIC YES; UR AMORPHOUS CRYSTAL FEW /HPF (NONE SEEN); UR ASCORBIC ACID NEGATIVE (NEGATIVE); UR BACTERIA FEW /HPF (NONE SEEN); UR BILIRUBIN (Dip) NEGATIVE (NEGATIVE); UR BLOOD (Dip) 2+ mg/dL (NEGATIVE); UR CLARITY SLIGHTLY CLOUDY (CLEAR); UR COLOR YELLOW (YELLOW); UR GLUCOSE (Dip) NEGATIVE (NEGATIVE); UR KETONES (Dip) NEGATIVE (NEGATIVE); UR LEUKOCYTE ESTERASE (Dip) 3+ Leu/ul (NEGATIVE); UR NITRITE (Dip) POSITIVE (NEGATIVE); UR RBC 24 /HPF (0-5); UR SQUAMOUS EPITHELIAL CELL FEW /HPF (FEW); UR TOTAL PROTEIN (Dip) NEGATIVE (NEGATIVE); UR UROBILINOGEN (Dip) NEGATIVE (NEGATIVE); UR WBC 47 /HPF (0-5)
[2017-12-23 13:47] LABS: ALANINE AMINOTRANSFERASE 38 IU/L (13-69); ALBUMIN 3.5 g/dl (3.3-4.9); ALBUMIN/GLOBULIN RATIO 1.12; ALKALINE PHOSPHATASE 68 IU/L (42-121); ANION GAP 10 (5-13); ASPARTATE AMINO TRANSFERASE 27 IU/L (15-46); BILIRUBIN,INDIRECT 0.3 mg/dl (0-1.1); BILIRUBIN,TOTAL 0.3 mg/dl (0.2-1.3); BLOOD UREA NITROGEN 11 mg/dl (7-20); CALCIUM 7.8 mg/dl (8.4-10.2); CARBON DIOXIDE 30 mmol/L (21-31); CHLORIDE 102 mmol/L (97-110); CREATININE 0.44 mg/dl (0.61-1.24); GLUCOSE 104 mg/dl (70-220); LIPASE 60 U/L (23-300); POTASSIUM 3.7 mmol/L (3.5-5.1); SODIUM 142 mmol/L (135-144); TOTAL PROTEIN 6.6 g/dl (6.1-8.1)
[2017-12-23 13:59] LABS: TROPONIN-I < 0.012 ng/ml (0.000-0.120)
[2017-12-23] MEDS: CIPROFLOXACIN 400MG/D5W 200 ML IVPB (14:53)
[2017-12-23] MEDS: SOD CHLORIDE 0.9% 100 ML (15:25)
[2017-12-23] MEDS: IOHEXOL 100 ML (15:25)
[2017-12-23] MEDS: IOHEXOL 350MG/ML 50 ML BTL (15:25)
[2017-12-23] MEDS ORDERED: ACETAMINOPHEN 325 MG TAB PO ×2 (17:30→20:30)
[2017-12-23] MEDS ORDERED: ONDANSETRON 4 MG INJ IV (17:30)
[2017-12-23 18:11] LABS: AADO2 Arterial 61.4 mmHg (7.0-24.0); Allen Test ACCEPTAB; Arterial Base Excess 5.1 mmol/L (-3.0-3); Arterial Blood Gas Oxygen Sat 93.1 mmHG (95.0-100.0); Arterial COHb 0.1 % (0.0-3.0); Arterial Fraction of Oxyhgb 92.9 % (93.0-99.0); Arterial HCO3 32.9 mmol/L (22.0-26.0); Arterial MetHb 0.1 % (0.0-1.5); Arterial Total Hemglobin 11.8 g/dl (12.0-18.0); MODE NASAL CANNULA; Site Right Radial
[2017-12-23] MEDS ORDERED: CEFTRIAXONE 1 GM/50 ML (PMX) 50 ML IVPB (20:30)
[2017-12-23 20:50] LABS: CREATINE KINASE 25 IU/L (23-200)
[2017-12-23] MEDS ORDERED: GLUCOSE GEL 15 GRAM TUBE PO ×2 (21:00)
[2017-12-23] MEDS: IPRATROPIUM (NEB) 0.5 MG/2.5 ML AMP HHN ×2 (21:00→23:13)
[2017-12-23] MEDS ORDERED: GLUCOSE GEL 15 GRAM TUBE BUCCAL (21:00)
[2017-12-23] MEDS ORDERED: DEXTROSE 50% 50 ML SYRINGE IV ×2 (21:00)
[2017-12-23] MEDS ORDERED: GLUCAGON 1 MG INJ IM (21:00)
[2017-12-23] MEDS: DOCUSATE SODIUM 100 MG CAP PO (21:00)
[2017-12-23 21:01] LABS: CK INDEX 4.2; CK-MB 1.05 ng/ml (0.0-2.4); TROPONIN-I < 0.012 ng/ml (0.000-0.120)
[2017-12-23] MEDS: HYPROMELLOSE 0.5% 15 ML OPH BOTH EYES (22:18)
[2017-12-23] MEDS: MAGNESIUM OXIDE 400 MG TAB PO (22:18)
[2017-12-23] MEDS: ATORVASTATIN 20 MG TAB PO (22:19)
[2017-12-23] MEDS: LEVETIRACETAM 250 MG TAB PO (22:19)
[2017-12-23] MEDS: TAMSULOSIN (SR) 0.4 MG CAP PO (22:19)
[2017-12-23] MEDS: MEROPENEM 1 GM/50ML(PMX) 50 ML IVPB (22:54)
[2017-12-23] MEDS: SOD PHOS MONO/DIBAS 250 MG TAB PO (22:54)
[2017-12-24 01:46] LABS: CREATINE KINASE 31 IU/L (23-200)
[2017-12-24 01:55] LABS: CK INDEX 3.4; CK-MB 1.04 ng/ml (0.0-2.4); TROPONIN-I < 0.012 ng/ml (0.000-0.120)
[2017-12-24] MEDS: MEROPENEM 1 GM/50ML(PMX) 50 ML IVPB ×2 (06:02→14:15)
[2017-12-24 06:50] LABS: ANION GAP 6 (5-13); BLOOD UREA NITROGEN 9 mg/dl (7-20); CALCIUM 7.7 mg/dl (8.4-10.2); CARBON DIOXIDE 35 mmol/L (21-31); CHLORIDE 100 mmol/L (97-110); CREATININE 0.47 mg/dl (0.61-1.24); GLUCOSE 117 mg/dl (70-220); MAGNESIUM 1.1 mg/dl (1.7-2.5); SODIUM 141 mmol/L (135-144)
[2017-12-24] MEDS: INSULIN ASPART [NOVOLOG] 3 ML PEN SC ×3 (08:00→17:21)
[2017-12-24] MEDS: ENOXAPARIN 40 MG/0.4 ML SYG SC (09:00)
[2017-12-24] MEDS: IPRATROPIUM (NEB) 0.5 MG/2.5 ML AMP HHN ×2 (09:03→16:26)
[2017-12-24 09:58] LABS: AADO2 Arterial 100.8 mmHg (7.0-24.0); Allen Test ACCEPTAB; Arterial Base Excess 4.1 mmol/L (-3.0-3); Arterial COHb 0.4 % (0.0-3.0); Arterial Fraction of Oxyhgb 95.3 % (93.0-99.0); Arterial HCO3 30.2 mmol/L (22.0-26.0); Arterial MetHb 0.3 % (0.0-1.5); Arterial Total Hemglobin 12.7 g/dl (12.0-18.0); Arterial pCO2 51.8 mmhg (35-45); Blood Gas IEPAP 15/5; Blood Gas PS 10; MODE MASK - BIPAP; Site Right Radial
[2017-12-24] MEDS: LEVETIRACETAM 250 MG TAB PO ×2 (10:08→20:15)
[2017-12-24] MEDS: SOD PHOS MONO/DIBAS 250 MG TAB PO ×3 (10:08→20:14)
[2017-12-24] MEDS: LISINOPRIL 5 MG TAB PO (10:09)
[2017-12-24] MEDS: DOCUSATE SODIUM 100 MG CAP PO ×2 (10:09→20:14)
[2017-12-24] MEDS: QUETIAPINE 25 MG TAB PO (10:10)
[2017-12-24] MEDS: DILTIAZEM (CD) 180 MG CAP PO (10:10)
[2017-12-24] MEDS: ESCITALOPRAM 10 MG TAB PO (10:11)
[2017-12-24] MEDS: ASPIRIN 81 MG TAB PO (10:11)
[2017-12-24] MEDS: MAGNESIUM OXIDE 400 MG TAB PO ×2 (10:12→20:14)
[2017-12-24] MEDS: MEMANTINE 5 MG TAB PO (10:13)
[2017-12-24] MEDS: FUROSEMIDE 20 MG TAB PO (10:13)
[2017-12-24] MEDS: LINAGLIPTIN 5 MG TABLET PO (10:14)
[2017-12-24] MEDS: DONEPEZIL 10 MG TAB PO (10:14)
[2017-12-24] MEDS: HYPROMELLOSE 0.5% 15 ML OPH BOTH EYES ×2 (10:14→20:14)
[2017-12-24] MEDS: MAGNESIUM SULFATE 4 GM/100 ML 100 ML IVPB (16:01)
[2017-12-24] MEDS: METHYLPREDNISOLONE 40 MG INJ IV (18:19)
[2017-12-24] MEDS: ATORVASTATIN 20 MG TAB PO (20:14)
[2017-12-24] MEDS: TAMSULOSIN (SR) 0.4 MG CAP PO (20:14)
[2017-12-25] MEDS: MEROPENEM 1 GM/50ML(PMX) 50 ML IVPB ×4 (00:01→22:25)
[2017-12-25] MEDS: METHYLPREDNISOLONE 40 MG INJ IV ×4 (00:01→17:27)
[2017-12-25] MEDS: IPRATROPIUM (NEB) 0.5 MG/2.5 ML AMP HHN ×3 (00:11→23:05)
[2017-12-25 06:11] LABS: ADD MAN DIFF? NO
[2017-12-25 06:21] LABS: WHITE BLOOD COUNT 4.2 10^3/ul (4.8-10.8)
[2017-12-25 06:21] LABS: ABNORMAL IP MESSAGE 1; BASOPHILS % 0.7 % (0.0-2.0); HEMOGLOBIN 11.1 g/dl (14.0-18.0); LYMPHOCYTES # 0.6 10^3/ul (0.8-2.9); LYMPHOCYTES % 13.2 % (15.0-51.0); MEAN CORPUSCULAR HEMOGLOBIN 28.6 pg (29.0-33.0); MEAN CORPUSCULAR HGB CONC 31.7 g/dl (32.0-37.0); MEAN CORPUSCULAR VOLUME 90.2 fl (82.0-101.0); MEAN PLATELET VOLUME 9.7 fl (7.4-10.4); MONOCYTE # 0.1 10^3/ul (0.3-0.9); MONOCYTES % 3.1 % (0.0-11.0); NEUTROPHIL # 3.3 10^3/ul (1.6-7.5); NEUTROPHILS % 78.7 % (39.0-77.0); PLATELET COUNT 325 10^3/UL (140-415); POSITIVE DIFF @See below; RED BLOOD COUNT 3.88 10^6/ul (4.70-6.10); RED CELL DISTRIBUTION WIDTH 14.9 % (11.5-14.5)
[2017-12-25 06:58] LABS: ANION GAP 4 (5-13); BLOOD UREA NITROGEN 8 mg/dl (7-20); CALCIUM 7.9 mg/dl (8.4-10.2); CARBON DIOXIDE 37 mmol/L (21-31); CHLORIDE 99 mmol/L (97-110); CREATININE 0.36 mg/dl (0.61-1.24); GLUCOSE 190 mg/dl (70-220); MAGNESIUM 2.2 mg/dl (1.7-2.5); POTASSIUM 4.3 mmol/L (3.5-5.1); SODIUM 140 mmol/L (135-144)
[2017-12-25 08:51] LABS: AADO2 Arterial 134.8 mmHg (7.0-24.0); Allen Test ACCEPTAB; Arterial Base Excess 5.3 mmol/L (-3.0-3); Arterial COHb 0.3 % (0.0-3.0); Arterial Fraction of Oxyhgb 92.5 % (93.0-99.0); Arterial HCO3 29.9 mmol/L (22.0-26.0); Arterial MetHb 0.2 % (0.0-1.5); Arterial Total Hemglobin 11.1 g/dl (12.0-18.0); Arterial pCO2 43.9 mmhg (35-45); Blood Gas IEPAP 15/5; Blood Gas PS 10; MODE MASK - BIPAP; Site Right Radial
[2017-12-25] MEDS: SOD PHOS MONO/DIBAS 250 MG TAB PO ×3 (08:56→20:01)
[2017-12-25] MEDS: ASPIRIN 81 MG TAB PO (08:56)
[2017-12-25] MEDS: LISINOPRIL 5 MG TAB PO (08:57)
[2017-12-25] MEDS: MAGNESIUM OXIDE 400 MG TAB PO ×2 (08:57→20:02)
[2017-12-25] MEDS: MEMANTINE 5 MG TAB PO (08:57)
[2017-12-25] MEDS: LEVETIRACETAM 250 MG TAB PO ×2 (08:57→20:02)
[2017-12-25] MEDS: ESCITALOPRAM 10 MG TAB PO (08:58)
[2017-12-25] MEDS: DONEPEZIL 10 MG TAB PO (08:58)
[2017-12-25] MEDS: LINAGLIPTIN 5 MG TABLET PO (08:58)
[2017-12-25] MEDS: DILTIAZEM (CD) 180 MG CAP PO (08:58)
[2017-12-25] MEDS: FUROSEMIDE 20 MG TAB PO (08:59)
[2017-12-25] MEDS: DOCUSATE SODIUM 100 MG CAP PO ×2 (08:59→20:01)
[2017-12-25] MEDS: QUETIAPINE 25 MG TAB PO (08:59)
[2017-12-25] MEDS: INSULIN ASPART [NOVOLOG] 3 ML PEN SC ×3 (09:22→17:31)
[2017-12-25] MEDS: ENOXAPARIN 40 MG/0.4 ML SYG SC (09:25)
[2017-12-25] MEDS: HYPROMELLOSE 0.5% 15 ML OPH BOTH EYES ×2 (09:26→20:02)
[2017-12-25] MEDS: TAMSULOSIN (SR) 0.4 MG CAP PO (20:01)
[2017-12-25] MEDS: ATORVASTATIN 20 MG TAB PO (20:01)
[2017-12-26] MEDS: METHYLPREDNISOLONE 40 MG INJ IV ×4 (00:31→17:50)
[2017-12-26] MEDS: MEROPENEM 1 GM/50ML(PMX) 50 ML IVPB ×3 (05:49→20:58)
[2017-12-26] MEDS: IPRATROPIUM (NEB) 0.5 MG/2.5 ML AMP HHN ×2 (07:56→16:00)
[2017-12-26] MEDS: HYPROMELLOSE 0.5% 15 ML OPH BOTH EYES ×2 (08:17→21:00)
[2017-12-26] MEDS: SOD PHOS MONO/DIBAS 250 MG TAB PO ×3 (08:17→20:59)
[2017-12-26] MEDS: ASPIRIN 81 MG TAB PO (08:18)
[2017-12-26] MEDS: MAGNESIUM OXIDE 400 MG TAB PO ×2 (08:18→20:59)
[2017-12-26] MEDS: ESCITALOPRAM 10 MG TAB PO (08:18)
[2017-12-26] MEDS: LINAGLIPTIN 5 MG TABLET PO (08:19)
[2017-12-26] MEDS: DONEPEZIL 10 MG TAB PO (08:19)
[2017-12-26] MEDS: MEMANTINE 5 MG TAB PO (08:19)
[2017-12-26] MEDS: LEVETIRACETAM 250 MG TAB PO ×2 (08:19→20:59)
[2017-12-26] MEDS: LISINOPRIL 5 MG TAB PO (08:20)
[2017-12-26] MEDS: FUROSEMIDE 20 MG TAB PO (08:21)
[2017-12-26] MEDS: DOCUSATE SODIUM 100 MG CAP PO ×2 (08:21→20:59)
[2017-12-26] MEDS: INSULIN ASPART [NOVOLOG] 3 ML PEN SC ×3 (08:23→17:28)
[2017-12-26] MEDS: ENOXAPARIN 40 MG/0.4 ML SYG SC (08:35)
[2017-12-26] MEDS: DILTIAZEM (CD) 180 MG CAP PO (10:13)
[2017-12-26] MEDS: QUETIAPINE 25 MG TAB PO (10:13)
[2017-12-26] MEDS: ADENOSINE 6 MG INJ IV ×2 (11:42→13:13)
[2017-12-26] MEDS ORDERED: METOPROLOL 5 MG INJ (13:27)
[2017-12-26] MEDS: METOPROLOL 5 MG INJ IV (13:35)
[2017-12-26] MEDS ORDERED: AMIODARONE 150MG/D5W BOLUS 100 ML (13:57)
[2017-12-26] MEDS: AMIODARONE 900 MG in DEXTROSE 5% 482 ML IV ×2 (14:35→14:36)
[2017-12-26] MEDS: AMIODARONE 150MG/D5W BOLUS 100 ML IV (14:37)
[2017-12-26] MEDS: TAMSULOSIN (SR) 0.4 MG CAP PO (20:58)
[2017-12-26] MEDS: ATORVASTATIN 20 MG TAB PO (20:59)
[2017-12-27] MEDS: METHYLPREDNISOLONE 40 MG INJ IV ×4 (00:37→18:00)
[2017-12-27] MEDS: MEROPENEM 1 GM/50ML(PMX) 50 ML IVPB ×2 (05:53→13:35)
[2017-12-27] MEDS: INSULIN ASPART [NOVOLOG] 3 ML PEN SC ×3 (07:43→17:43)
[2017-12-27] MEDS: IPRATROPIUM (NEB) 0.5 MG/2.5 ML AMP HHN ×3 (08:00→15:54)
[2017-12-27] MEDS: ASPIRIN 81 MG TAB PO (08:46)
[2017-12-27] MEDS: MAGNESIUM OXIDE 400 MG TAB PO ×2 (08:46→20:47)
[2017-12-27] MEDS: SOD PHOS MONO/DIBAS 250 MG TAB PO ×3 (08:46→20:46)
[2017-12-27] MEDS: LISINOPRIL 5 MG TAB PO (08:47)
[2017-12-27] MEDS: FUROSEMIDE 20 MG TAB PO (08:47)
[2017-12-27] MEDS: DOCUSATE SODIUM 100 MG CAP PO ×2 (08:47→20:45)
[2017-12-27] MEDS: MEMANTINE 5 MG TAB PO (08:48)
[2017-12-27] MEDS: LEVETIRACETAM 250 MG TAB PO ×2 (08:48→20:46)
[2017-12-27] MEDS: DONEPEZIL 10 MG TAB PO (08:49)
[2017-12-27] MEDS: LINAGLIPTIN 5 MG TABLET PO (08:49)
[2017-12-27] MEDS: ESCITALOPRAM 10 MG TAB PO (08:49)
[2017-12-27] MEDS: DILTIAZEM (CD) 180 MG CAP PO (08:50)
[2017-12-27] MEDS: QUETIAPINE 25 MG TAB PO (08:50)
[2017-12-27] MEDS: ENOXAPARIN 40 MG/0.4 ML SYG SC (09:16)
[2017-12-27] MEDS: HYPROMELLOSE 0.5% 15 ML OPH BOTH EYES ×2 (09:17→21:00)
[2017-12-27] MEDS: DILTIAZEM 25 MG INJ IV (09:47)
[2017-12-27] MEDS: LACTULOSE 30ML CUP PO (14:59)
[2017-12-27] MEDS: ONDANSETRON 4 MG INJ IV ×2 (14:59→20:48)
[2017-12-27] MEDS: SOD CHLORIDE 0.45% 1,000 ML IV (15:00)
[2017-12-27 16:30] LABS: ALANINE AMINOTRANSFERASE 32 IU/L (13-69); ALBUMIN 3.2 g/dl (3.3-4.9); ALBUMIN/GLOBULIN RATIO 0.96; ALKALINE PHOSPHATASE 76 IU/L (42-121); ANION GAP 10 (5-13); ASPARTATE AMINO TRANSFERASE 25 IU/L (15-46); BILIRUBIN,INDIRECT 0.4 mg/dl (0-1.1); BILIRUBIN,TOTAL 0.4 mg/dl (0.2-1.3); BLOOD UREA NITROGEN 16 mg/dl (7-20); CALCIUM 8.3 mg/dl (8.4-10.2); CARBON DIOXIDE 35 mmol/L (21-31); CHLORIDE 92 mmol/L (97-110); CREATININE 0.37 mg/dl (0.61-1.24); GLUCOSE 192 mg/dl (70-220); POTASSIUM 3.2 mmol/L (3.5-5.1); SODIUM 137 mmol/L (135-144); TOTAL PROTEIN 6.5 g/dl (6.1-8.1)
[2017-12-27] MEDS: METOCLOPRAMIDE 10 MG INJ IV (18:00)
[2017-12-27] MEDS: POTASSIUM CHLORIDE 100 ML IVPB ×2 (18:21→20:52)
[2017-12-27] MEDS: TAMSULOSIN (SR) 0.4 MG CAP PO (20:46)
[2017-12-27] MEDS: ATORVASTATIN 20 MG TAB PO (20:46)
[2017-12-28] MEDS: IPRATROPIUM (NEB) 0.5 MG/2.5 ML AMP HHN ×3 (01:29→17:11)
[2017-12-28] MEDS: SOD CHLORIDE 0.45% 1,000 ML IV (05:18)
[2017-12-28 05:40] LABS: ADD MAN DIFF? NO
[2017-12-28 05:54] LABS: ABNORMAL IP MESSAGE 1; BASOPHIL # 0.1 10^3/ul (0.0-0.1); BASOPHILS % 0.8 % (0.0-2.0); HEMATOCRIT 34.7 % (42.0-52.0); LYMPHOCYTES # 0.8 10^3/ul (0.8-2.9); LYMPHOCYTES % 7.4 % (15.0-51.0); MEAN CORPUSCULAR HEMOGLOBIN 28.3 pg (29.0-33.0); MEAN CORPUSCULAR HGB CONC 31.7 g/dl (32.0-37.0); MEAN CORPUSCULAR VOLUME 89.2 fl (82.0-101.0); MEAN PLATELET VOLUME 9.8 fl (7.4-10.4); MONOCYTE # 0.9 10^3/ul (0.3-0.9); MONOCYTES % 8.9 % (0.0-11.0); NEUTROPHIL # 8.1 10^3/ul (1.6-7.5); NEUTROPHILS % 77.1 % (39.0-77.0); NUCLEATED RED BLOOD CELLS # 0.3 10^3/ul (0.0-0.0); NUCLEATED RED BLOOD CELLS% 2.7 /100WBC (0.0-0.0); PLATELET COUNT 388 10^3/UL (140-415); RED BLOOD COUNT 3.89 10^6/ul (4.70-6.10); RED CELL DISTRIBUTION WIDTH 15.5 % (11.5-14.5)
[2017-12-28 05:54] LABS: WHITE BLOOD COUNT 10.5 10^3/ul (4.8-10.8)
[2017-12-28 06:03] LABS: ANION GAP 8 (5-13); BLOOD UREA NITROGEN 30 mg/dl (7-20); CALCIUM 7.8 mg/dl (8.4-10.2); CARBON DIOXIDE 32 mmol/L (21-31); CHLORIDE 97 mmol/L (97-110); CREATININE 0.33 mg/dl (0.61-1.24); GLUCOSE 196 mg/dl (70-220); POTASSIUM 4.2 mmol/L (3.5-5.1); SODIUM 137 mmol/L (135-144)
[2017-12-28] MEDS: PANTOPRAZOLE 40 MG INJ IV (06:29)
[2017-12-28] MEDS: METHYLPREDNISOLONE 40 MG INJ IV ×4 (06:30→17:50)
[2017-12-28] MEDS: METOCLOPRAMIDE 10 MG INJ IV ×4 (06:30→17:50)
[2017-12-28] MEDS: INSULIN ASPART [NOVOLOG] 3 ML PEN SC ×3 (08:12→18:01)
[2017-12-28] MEDS: MEMANTINE 5 MG TAB PO (09:00)
[2017-12-28] MEDS: ESCITALOPRAM 10 MG TAB PO (09:00)
[2017-12-28] MEDS: LEVETIRACETAM 250 MG TAB PO ×2 (09:00→21:00)
[2017-12-28] MEDS: SOD PHOS MONO/DIBAS 250 MG TAB PO ×3 (09:00→21:00)
[2017-12-28] MEDS: QUETIAPINE 25 MG TAB PO (09:00)
[2017-12-28] MEDS: FUROSEMIDE 20 MG TAB PO (09:00)
[2017-12-28] MEDS: MAGNESIUM OXIDE 400 MG TAB PO ×2 (09:00→21:00)
[2017-12-28] MEDS: DILTIAZEM (CD) 180 MG CAP PO (09:00)
[2017-12-28] MEDS: LINAGLIPTIN 5 MG TABLET PO (09:00)
[2017-12-28] MEDS: DONEPEZIL 10 MG TAB PO (09:00)
[2017-12-28] MEDS: ASPIRIN 81 MG TAB PO (09:00)
[2017-12-28] MEDS: LISINOPRIL 5 MG TAB PO (09:00)
[2017-12-28] MEDS: DOCUSATE SODIUM 100 MG CAP PO ×2 (09:00→21:00)
[2017-12-28] MEDS: HYPROMELLOSE 0.5% 15 ML OPH BOTH EYES ×2 (12:02→22:04)
[2017-12-28] MEDS: MAGNESIUM SULFATE 2 GM/50 ML 50 ML IVPB (12:03)
[2017-12-28] MEDS: ENOXAPARIN 40 MG/0.4 ML SYG SC (12:18)
[2017-12-28] MEDS: D5W-0.45 NACL + KCL 20 MEQ 1,000 ML IV (14:35)
[2017-12-28] MEDS: TAMSULOSIN (SR) 0.4 MG CAP PO (21:00)
[2017-12-28] MEDS: ATORVASTATIN 20 MG TAB PO (21:00)
[2017-12-28] MEDS: ONDANSETRON 4 MG INJ IV (22:27)
[2017-12-29] MEDS: METOCLOPRAMIDE 10 MG INJ IV ×5 (00:44→23:33)
[2017-12-29] MEDS: METHYLPREDNISOLONE 40 MG INJ IV ×5 (00:44→23:33)
[2017-12-29] MEDS: D5W-0.45 NACL + KCL 20 MEQ 1,000 ML IV ×3 (00:55→18:14)
[2017-12-29] MEDS: HALOPERIDOL 5 MG INJ IV (00:59)
[2017-12-29] MEDS: hydrALAzine 20 MG INJ IV (01:17)
[2017-12-29] MEDS: LEVETIRACETAM IV 1,250 MG in DEXTROSE 5% 100 ML IVPB ×3 (01:46→21:35)
[2017-12-29] MEDS: LORAZEPAM 2 MG INJ IV ×2 (02:17→22:52)
[2017-12-29] MEDS: PANTOPRAZOLE 40 MG INJ IV (05:48)
[2017-12-29 05:52] LABS: ADD MAN DIFF? NO
[2017-12-29 06:00] LABS: ABNORMAL IP MESSAGE 1; BASOPHIL # 0.1 10^3/ul (0.0-0.1); BASOPHILS % 0.8 % (0.0-2.0); HEMATOCRIT 31.8 % (42.0-52.0); HEMOGLOBIN 10.2 g/dl (14.0-18.0); LYMPHOCYTES # 0.7 10^3/ul (0.8-2.9); MEAN CORPUSCULAR HEMOGLOBIN 28.8 pg (29.0-33.0); MEAN CORPUSCULAR HGB CONC 32.1 g/dl (32.0-37.0); MEAN CORPUSCULAR VOLUME 89.8 fl (82.0-101.0); MEAN PLATELET VOLUME 9.8 fl (7.4-10.4); MONOCYTE # 0.6 10^3/ul (0.3-0.9); NEUTROPHILS % 77.8 % (39.0-77.0); NUCLEATED RED BLOOD CELLS # 0.2 10^3/ul (0.0-0.0); PLATELET COUNT 346 10^3/UL (140-415); POSITIVE DIFF @See below; RED BLOOD COUNT 3.54 10^6/ul (4.70-6.10); RED CELL DISTRIBUTION WIDTH 15.4 % (11.5-14.5)
[2017-12-29 06:40] LABS: ALANINE AMINOTRANSFERASE 33 IU/L (13-69); ALBUMIN 3.1 g/dl (3.3-4.9); ALBUMIN/GLOBULIN RATIO 1.19; ALKALINE PHOSPHATASE 51 IU/L (42-121); ANION GAP 8 (5-13); ASPARTATE AMINO TRANSFERASE 32 IU/L (15-46); BILIRUBIN,INDIRECT 0.2 mg/dl (0-1.1); BILIRUBIN,TOTAL 0.2 mg/dl (0.2-1.3); BLOOD UREA NITROGEN 18 mg/dl (7-20); CALCIUM 7.4 mg/dl (8.4-10.2); CARBON DIOXIDE 31 mmol/L (21-31); CHLORIDE 100 mmol/L (97-110); CREATININE 0.31 mg/dl (0.61-1.24); GLUCOSE 239 mg/dl (70-220); MAGNESIUM 2.4 mg/dl (1.7-2.5); POTASSIUM 4.2 mmol/L (3.5-5.1); SODIUM 139 mmol/L (135-144); TOTAL PROTEIN 5.7 g/dl (6.1-8.1)
[2017-12-29] MEDS ORDERED: morphine 2 MG INJ IV ×2 (07:00→08:00)
[2017-12-29] MEDS ORDERED: ADENOSINE 3 MG/ML SYRINGE IV (07:00)
[2017-12-29] MEDS: INSULIN ASPART [NOVOLOG] 3 ML PEN SC ×2 (07:45→12:12)
[2017-12-29] MEDS: ALBUTEROL/IPRATROPIUM (NEB) 3 ML AMP HHN (07:57)
[2017-12-29] MEDS: IPRATROPIUM (NEB) 0.5 MG/2.5 ML AMP HHN ×3 (08:00→16:00)
[2017-12-29] MEDS: DILTIAZEM (CD) 180 MG CAP PO (08:04)
[2017-12-29] MEDS: DONEPEZIL 10 MG TAB PO (08:04)
[2017-12-29] MEDS: ASPIRIN 81 MG TAB PO (08:04)
[2017-12-29] MEDS: DOCUSATE SODIUM 100 MG CAP PO ×2 (08:05→20:37)
[2017-12-29] MEDS: FUROSEMIDE 20 MG TAB PO (08:05)
[2017-12-29] MEDS: SOD PHOS MONO/DIBAS 250 MG TAB PO ×3 (08:05→20:38)
[2017-12-29] MEDS: MAGNESIUM OXIDE 400 MG TAB PO ×2 (08:05→20:38)
[2017-12-29] MEDS: ESCITALOPRAM 10 MG TAB PO (08:05)
[2017-12-29] MEDS: MEMANTINE 5 MG TAB PO (08:06)
[2017-12-29] MEDS: LINAGLIPTIN 5 MG TABLET PO (08:06)
[2017-12-29] MEDS: QUETIAPINE 25 MG TAB PO (08:06)
[2017-12-29] MEDS: LISINOPRIL 5 MG TAB PO (08:06)
[2017-12-29] MEDS: DILTIAZEM 25 MG INJ IV (08:17)
[2017-12-29] MEDS ORDERED: ADENOSINE 4 ML (08:24)
[2017-12-29] MEDS: ADENOSINE 6 MG INJ IV (08:29)
[2017-12-29] MEDS ORDERED: METOPROLOL 5 MG INJ (08:42)
[2017-12-29] MEDS: METOPROLOL 5 MG INJ IV (08:44)
[2017-12-29 08:48] LABS: ANISOCYTOSIS 1+ (0-0); BAND NEUTROPHILS #M 0.4 10^3/ul (0.0-0.6); BAND NEUTROPHILS % (M) 5 % (0-4); ERYTHROBLAST% (NRBC) (M) 6 % (0-0); LYMPHOCYTES #M 1.5 10^3/ul (0.8-2.9); LYMPHOCYTES % (M) 17 % (15-51); MICROCYTOSIS 1+ (0-0); MONOCYTE #M 0.3 10^3/ul (0.3-0.9); MONOCYTES % (M) 4 % (0-11); MYELOCYTES #M 0.4 10^3/ul (0.0-0.0); MYELOCYTES % (M) 5 % (0-0); OVALOCYTES 1+ (0-0); PLATELET ESTIMATE NORMAL; POIKILOCYTOSIS 2+ (0-0); POLYCHROMASIA 1+ (0-0); REACTIVE LYMPHOCYTES #M 0.2 10^3/ul (0.0-0.0); REACTIVE LYMPHOCYTES% (M) 3 % (0-0); SEG NEUT #M 5.9 10^3/ul (1.6-7.5); SEGMENTED NEUTROPHILS (M) % 65 % (39-77); SMUDGE%M 2 % (0-0)
[2017-12-29] MEDS ORDERED: METOPROLOL 5 MG INJ IV (09:00)
[2017-12-29] MEDS: DILTIAZEM-D5W 125MG/125ML DRIP 125 ML IV (09:25)
[2017-12-29] MEDS: HYPROMELLOSE 0.5% 15 ML OPH BOTH EYES ×2 (09:33→20:37)
[2017-12-29] MEDS: ENOXAPARIN 40 MG/0.4 ML SYG SC (09:43)
[2017-12-29 13:25] LABS: HEMATOCRIT 31.3 % (42.0-52.0); HEMOGLOBIN 10.1 g/dl (14.0-18.0)
[2017-12-29] MEDS ORDERED: INSULIN ASPART [NOVOLOG] 3 ML PEN SC (18:00)
[2017-12-29] MEDS: Insulin NOVOLOG SS MILD Algorithm (NPO/TPN/ENTERAL FEEDS) SC ×2 (18:18→23:47)
[2017-12-29] MEDS ORDERED: INSULIN GLARGINE [LANTus] (100 UNITS/ML) SYG SC (20:00)
[2017-12-29] MEDS: INSULIN GLARGINE [LANTus] (100 UNITS/ML) SYG SC (20:05)
[2017-12-29] MEDS: TAMSULOSIN (SR) 0.4 MG CAP PO (20:37)
[2017-12-29] MEDS: ATORVASTATIN 20 MG TAB PO (20:38)
[2017-12-30] MEDS: IPRATROPIUM (NEB) 0.5 MG/2.5 ML AMP HHN ×3 (00:08→15:53)
[2017-12-30] MEDS ORDERED: ACCU-CHEK XX (02:00)
[2017-12-30 05:38] LABS: ADD MAN DIFF? NO
[2017-12-30 05:45] LABS: WHITE BLOOD COUNT 9.3 10^3/ul (4.8-10.8)
[2017-12-30 05:45] LABS: ABNORMAL IP MESSAGE 1; BASOPHIL # 0.1 10^3/ul (0.0-0.1); BASOPHILS % 0.6 % (0.0-2.0); HEMATOCRIT 32.3 % (42.0-52.0); HEMOGLOBIN 10.3 g/dl (14.0-18.0); LYMPHOCYTES # 0.7 10^3/ul (0.8-2.9); LYMPHOCYTES % 7.7 % (15.0-51.0); MEAN CORPUSCULAR HEMOGLOBIN 29.2 pg (29.0-33.0); MEAN CORPUSCULAR HGB CONC 31.9 g/dl (32.0-37.0); MEAN CORPUSCULAR VOLUME 91.5 fl (82.0-101.0); MEAN PLATELET VOLUME 9.9 fl (7.4-10.4); MONOCYTE # 0.6 10^3/ul (0.3-0.9); MONOCYTES % 5.9 % (0.0-11.0); NEUTROPHIL # 7.3 10^3/ul (1.6-7.5); NEUTROPHILS % 79.1 % (39.0-77.0); NUCLEATED RED BLOOD CELLS # 0.1 10^3/ul (0.0-0.0); NUCLEATED RED BLOOD CELLS% 1.5 /100WBC (0.0-0.0); PLATELET COUNT 376 10^3/UL (140-415); POSITIVE DIFF @See below; RED BLOOD COUNT 3.53 10^6/ul (4.70-6.10); RED CELL DISTRIBUTION WIDTH 15.7 % (11.5-14.5)
[2017-12-30 06:17] LABS: ALANINE AMINOTRANSFERASE 62 IU/L (13-69); ALBUMIN 3.2 g/dl (3.3-4.9); ALBUMIN/GLOBULIN RATIO 1.18; ALKALINE PHOSPHATASE 48 IU/L (42-121); ANION GAP 4 (5-13); ASPARTATE AMINO TRANSFERASE 41 IU/L (15-46); BILIRUBIN,INDIRECT 0.3 mg/dl (0-1.1); BILIRUBIN,TOTAL 0.3 mg/dl (0.2-1.3); BLOOD UREA NITROGEN 13 mg/dl (7-20); CALCIUM 7.4 mg/dl (8.4-10.2); CARBON DIOXIDE 36 mmol/L (21-31); CHLORIDE 97 mmol/L (97-110); CREATININE 0.38 mg/dl (0.61-1.24); GLUCOSE 186 mg/dl (70-220); POTASSIUM 4.8 mmol/L (3.5-5.1); SODIUM 137 mmol/L (135-144); TOTAL PROTEIN 5.9 g/dl (6.1-8.1)
[2017-12-30] MEDS: PANTOPRAZOLE 40 MG INJ IV (06:17)
[2017-12-30] MEDS: METOCLOPRAMIDE 10 MG INJ IV ×3 (06:18→18:03)
[2017-12-30] MEDS: D5W-0.45 NACL + KCL 20 MEQ 1,000 ML IV ×3 (06:18→21:07)
[2017-12-30] MEDS: METHYLPREDNISOLONE 40 MG INJ IV (06:18)
[2017-12-30] MEDS: LORAZEPAM 2 MG INJ IV ×2 (06:26→20:32)
[2017-12-30] MEDS: Insulin NOVOLOG SS MILD Algorithm (NPO/TPN/ENTERAL FEEDS) SC ×3 (06:31→18:08)
[2017-12-30] MEDS: DIATR MEGLU/DIATRIZOATE SODIUM 120 ML BTL (06:50)
[2017-12-30] MEDS: ESCITALOPRAM 10 MG TAB PO (09:00)
[2017-12-30] MEDS: LISINOPRIL 5 MG TAB PO (09:00)
[2017-12-30] MEDS: LINAGLIPTIN 5 MG TABLET PO (09:00)
[2017-12-30] MEDS: DOCUSATE SODIUM 100 MG CAP PO ×2 (09:00→21:00)
[2017-12-30] MEDS: ASPIRIN 81 MG TAB PO (09:00)
[2017-12-30] MEDS: MEMANTINE 5 MG TAB PO (09:00)
[2017-12-30] MEDS: DONEPEZIL 10 MG TAB PO (09:00)
[2017-12-30] MEDS: FUROSEMIDE 20 MG TAB PO (09:00)
[2017-12-30] MEDS: SOD PHOS MONO/DIBAS 250 MG TAB PO ×3 (09:00→21:00)
[2017-12-30] MEDS: MAGNESIUM OXIDE 400 MG TAB PO ×2 (09:00→21:00)
[2017-12-30] MEDS: QUETIAPINE 25 MG TAB PO (09:00)
[2017-12-30] MEDS: DILTIAZEM (CD) 180 MG CAP PO (09:00)
[2017-12-30] MEDS: HYPROMELLOSE 0.5% 15 ML OPH BOTH EYES ×2 (09:22→21:37)
[2017-12-30] MEDS: hydrALAzine 20 MG INJ IV (10:34)
[2017-12-30] MEDS: MAGNESIUM SULFATE 2 GM/50 ML 50 ML IVPB (10:42)
[2017-12-30] MEDS: ENOXAPARIN 40 MG/0.4 ML SYG SC (10:47)
[2017-12-30] MEDS: LEVETIRACETAM IV 1,250 MG in DEXTROSE 5% 100 ML IVPB ×2 (11:06→22:36)
[2017-12-30] MEDS: DILTIAZEM-D5W 125MG/125ML DRIP 125 ML IV (15:23)
[2017-12-30] MEDS: METOPROLOL 5 MG INJ IV (15:44)
[2017-12-30] MEDS: DILTIAZEM 25 MG INJ IV (16:23)
[2017-12-30] MEDS: TAMSULOSIN (SR) 0.4 MG CAP PO (21:00)
[2017-12-30] MEDS: ATORVASTATIN 20 MG TAB PO (21:00)
[2017-12-30] MEDS: INSULIN GLARGINE [LANTus] (100 UNITS/ML) SYG SC (22:55)
[2017-12-31] MEDS: IPRATROPIUM (NEB) 0.5 MG/2.5 ML AMP HHN ×3 (00:38→17:37)
[2017-12-31] MEDS: METOCLOPRAMIDE 10 MG INJ IV ×4 (00:53→17:20)
[2017-12-31] MEDS: Insulin NOVOLOG SS MILD Algorithm (NPO/TPN/ENTERAL FEEDS) SC ×4 (03:15→16:45)
[2017-12-31 06:11] LABS: ALANINE AMINOTRANSFERASE 295 IU/L (13-69); ALBUMIN 2.6 g/dl (3.3-4.9); ALBUMIN/GLOBULIN RATIO 0.96; ALKALINE PHOSPHATASE 67 IU/L (42-121); ANION GAP 4 (5-13); ASPARTATE AMINO TRANSFERASE 168 IU/L (15-46); BILIRUBIN,INDIRECT 0.2 mg/dl (0-1.1); BILIRUBIN,TOTAL 0.2 mg/dl (0.2-1.3); BLOOD UREA NITROGEN 11 mg/dl (7-20); CARBON DIOXIDE 36 mmol/L (21-31); CHLORIDE 97 mmol/L (97-110); GLUCOSE 134 mg/dl (70-220); MAGNESIUM 1.9 mg/dl (1.7-2.5); SODIUM 137 mmol/L (135-144); TOTAL PROTEIN 5.3 g/dl (6.1-8.1)
[2017-12-31] MEDS: PANTOPRAZOLE 40 MG INJ IV (06:45)
[2017-12-31] MEDS: LORAZEPAM 2 MG INJ IV ×2 (07:55→21:28)
[2017-12-31] MEDS: DONEPEZIL 10 MG TAB PO (08:38)
[2017-12-31] MEDS: ASPIRIN 81 MG TAB PO (08:39)
[2017-12-31] MEDS: DILTIAZEM (CD) 180 MG CAP PO (08:42)
[2017-12-31] MEDS: FUROSEMIDE 20 MG TAB PO (08:42)
[2017-12-31] MEDS: DOCUSATE SODIUM 100 MG CAP PO ×2 (08:42→20:38)
[2017-12-31] MEDS: SOD PHOS MONO/DIBAS 250 MG TAB PO ×3 (08:42→20:39)
[2017-12-31] MEDS: LINAGLIPTIN 5 MG TABLET PO (08:43)
[2017-12-31] MEDS: QUETIAPINE 25 MG TAB PO (08:43)
[2017-12-31] MEDS: MAGNESIUM OXIDE 400 MG TAB PO ×2 (08:43→20:39)
[2017-12-31] MEDS: LISINOPRIL 5 MG TAB PO (08:43)
[2017-12-31] MEDS: MEMANTINE 5 MG TAB PO (08:43)
[2017-12-31] MEDS: ESCITALOPRAM 10 MG TAB PO (08:43)
[2017-12-31] MEDS: D5W-0.45 NACL + KCL 20 MEQ 1,000 ML IV ×2 (09:20→21:09)
[2017-12-31] MEDS: LEVETIRACETAM IV 1,250 MG in DEXTROSE 5% 100 ML IVPB ×2 (09:34→22:12)
[2017-12-31] MEDS: HYPROMELLOSE 0.5% 15 ML OPH BOTH EYES ×2 (09:45→21:00)
[2017-12-31] MEDS: ENOXAPARIN 40 MG/0.4 ML SYG SC (09:50)
[2017-12-31] MEDS: hydrALAzine 20 MG INJ IV (12:02)
[2017-12-31] MEDS: MAGNESIUM SULFATE 3 GM in DEXTROSE 5% 100 ML IVPB (14:37)
[2017-12-31] MEDS: ATORVASTATIN 20 MG TAB PO (20:39)
[2017-12-31] MEDS: TAMSULOSIN (SR) 0.4 MG CAP PO (20:39)
[2017-12-31] MEDS: INSULIN GLARGINE [LANTus] (100 UNITS/ML) SYG SC (21:19)
[2018-01-01] MEDS: METOCLOPRAMIDE 10 MG INJ IV ×5 (00:32→23:24)
[2018-01-01] MEDS: IPRATROPIUM (NEB) 0.5 MG/2.5 ML AMP HHN ×3 (00:58→16:07)
[2018-01-01] MEDS: hydrALAzine 20 MG INJ IV (04:38)
[2018-01-01] MEDS: PANTOPRAZOLE 40 MG INJ IV (05:42)
[2018-01-01] MEDS: LORAZEPAM 2 MG INJ IV (05:42)
[2018-01-01] MEDS: Insulin NOVOLOG SS MILD Algorithm (NPO/TPN/ENTERAL FEEDS) SC ×5 (05:57→23:23)
[2018-01-01 06:45] LABS: ABNORMAL IP MESSAGE 1; HEMATOCRIT 37.1 % (42.0-52.0); HEMOGLOBIN 12.2 g/dl (14.0-18.0); MEAN CORPUSCULAR HEMOGLOBIN 28.7 pg (29.0-33.0); MEAN CORPUSCULAR HGB CONC 32.9 g/dl (32.0-37.0); MEAN CORPUSCULAR VOLUME 87.3 fl (82.0-101.0); MEAN PLATELET VOLUME 10.6 fl (7.4-10.4); NUCLEATED RED BLOOD CELLS% 0.8 /100WBC (0.0-0.0); PLATELET COUNT 376 10^3/UL (140-415); POSITIVE DIFF @See below; RED BLOOD COUNT 4.25 10^6/ul (4.70-6.10); RED CELL DISTRIBUTION WIDTH 15.5 % (11.5-14.5)
[2018-01-01 06:45] LABS: WHITE BLOOD COUNT 10.6 10^3/ul (4.8-10.8)
[2018-01-01 07:29] LABS: ADD MAN DIFF? YES
[2018-01-01] MEDS: HALOPERIDOL 5 MG INJ IV (08:07)
[2018-01-01] MEDS: HYPROMELLOSE 0.5% 15 ML OPH BOTH EYES ×2 (08:07→20:29)
[2018-01-01] MEDS: ENOXAPARIN 40 MG/0.4 ML SYG SC (08:12)
[2018-01-01] MEDS: D5W-0.45 NACL + KCL 20 MEQ 1,000 ML IV ×3 (08:12→18:27)
[2018-01-01] MEDS: LEVETIRACETAM IV 1,250 MG in DEXTROSE 5% 100 ML IVPB ×2 (08:15→21:11)
[2018-01-01] MEDS: ESCITALOPRAM 10 MG TAB PO (08:31)
[2018-01-01] MEDS: DILTIAZEM (CD) 180 MG CAP PO (08:31)
[2018-01-01] MEDS: ASPIRIN 81 MG TAB PO (08:31)
[2018-01-01] MEDS: FUROSEMIDE 20 MG TAB PO (08:31)
[2018-01-01] MEDS: MAGNESIUM OXIDE 400 MG TAB PO ×2 (08:31→21:00)
[2018-01-01] MEDS: SOD PHOS MONO/DIBAS 250 MG TAB PO ×3 (08:31→21:00)
[2018-01-01] MEDS: DONEPEZIL 10 MG TAB PO (08:31)
[2018-01-01] MEDS: DOCUSATE SODIUM 100 MG CAP PO ×2 (08:31→21:00)
[2018-01-01] MEDS: MEMANTINE 5 MG TAB PO (08:32)
[2018-01-01] MEDS: LISINOPRIL 5 MG TAB PO (08:32)
[2018-01-01] MEDS: LINAGLIPTIN 5 MG TABLET PO (08:32)
[2018-01-01] MEDS: QUETIAPINE 25 MG TAB PO (08:32)
[2018-01-01 10:07] LABS: ANISOCYTOSIS 1+ (0-0); BAND NEUTROPHILS #M 0.2 10^3/ul (0.0-0.6); BAND NEUTROPHILS % (M) 2 % (0-4); BURR CELLS 1+ (0-0); EOSINOPHILS % (M) 1 % (0-7); LYMPHOCYTES #M 1.5 10^3/ul (0.8-2.9); LYMPHOCYTES % (M) 15 % (15-51); METAMYELOCYTES #M 0.1 10^3/ul (0.0-0.0); METAMYELOCYTES %M 1 % (0-0); MONOCYTE #M 0.7 10^3/ul (0.3-0.9); MONOCYTES % (M) 7 % (0-11); MYELOCYTES #M 0.4 10^3/ul (0.0-0.0); MYELOCYTES % (M) 4 % (0-0); PLATELET ESTIMATE NORMAL; POIKILOCYTOSIS 1+ (0-0); POLYCHROMASIA 1+ (0-0); PROMYELOCYTES #M 0.2 10^3/ul (0-0); PROMYELOCYTES % (M) 2 % (0-0); REACTIVE LYMPHOCYTES #M 0.1 10^3/ul (0.0-0.0); REACTIVE LYMPHOCYTES% (M) 1 % (0-0); SEG NEUT #M 7.1 10^3/ul (1.6-7.5); SEGMENTED NEUTROPHILS (M) % 67 % (39-77); SMUDGE%M 5 % (0-0)
[2018-01-01] MEDS: INSULIN GLARGINE [LANTus] (100 UNITS/ML) SYG SC (20:34)
[2018-01-01] MEDS: TAMSULOSIN (SR) 0.4 MG CAP PO (21:00)
[2018-01-01] MEDS: ATORVASTATIN 20 MG TAB PO (21:00)
[2018-01-01] MEDS ORDERED: VITAMIN A & D 5 GM OINT PACKET TOP (23:58)
[2018-01-02] MEDS: HALOPERIDOL 5 MG INJ IV
[2018-01-02] MEDS: LORAZEPAM 2 MG INJ IV ×2 (01:30→09:16)
[2018-01-02] MEDS: D5W-0.45 NACL + KCL 20 MEQ 1,000 ML IV (05:38)
[2018-01-02] MEDS: PANTOPRAZOLE 40 MG INJ IV (05:42)
[2018-01-02] MEDS: Insulin NOVOLOG SS MILD Algorithm (NPO/TPN/ENTERAL FEEDS) SC ×4 (05:42→23:28)
[2018-01-02] MEDS: METOCLOPRAMIDE 10 MG INJ IV ×4 (05:42→23:25)
[2018-01-02 06:19] LABS: ADD MAN DIFF? NO
[2018-01-02 06:35] LABS: BASOPHILS % 0.4 % (0.0-2.0); EOSINOPHILS # 0.1 10^3/ul (0.0-0.5); HEMATOCRIT 35.5 % (42.0-52.0); HEMOGLOBIN 11.8 g/dl (14.0-18.0); LYMPHOCYTES # 1.4 10^3/ul (0.8-2.9); LYMPHOCYTES % 20.2 % (15.0-51.0); MEAN CORPUSCULAR HEMOGLOBIN 29.1 pg (29.0-33.0); MEAN CORPUSCULAR HGB CONC 33.2 g/dl (32.0-37.0); MEAN CORPUSCULAR VOLUME 87.4 fl (82.0-101.0); MEAN PLATELET VOLUME 10.7 fl (7.4-10.4); MONOCYTE # 0.7 10^3/ul (0.3-0.9); MONOCYTES % 9.6 % (0.0-11.0); NEUTROPHIL # 4.5 10^3/ul (1.6-7.5); NEUTROPHILS % 64.6 % (39.0-77.0); PLATELET COUNT 295 10^3/UL (140-415); RED BLOOD COUNT 4.06 10^6/ul (4.70-6.10); RED CELL DISTRIBUTION WIDTH 15.7 % (11.5-14.5)
[2018-01-02 08:00] LABS: ALANINE AMINOTRANSFERASE 189 IU/L (13-69); ALBUMIN 3.9 g/dl (3.3-4.9); ALBUMIN/GLOBULIN RATIO 1.25; ALKALINE PHOSPHATASE 92 IU/L (42-121); ANION GAP 11 (5-13); ASPARTATE AMINO TRANSFERASE 65 IU/L (15-46); BILIRUBIN,INDIRECT 0.5 mg/dl (0-1.1); BILIRUBIN,TOTAL 0.5 mg/dl (0.2-1.3); BLOOD UREA NITROGEN 3 mg/dl (7-20); CALCIUM 9.4 mg/dl (8.4-10.2); CARBON DIOXIDE 28 mmol/L (21-31); CHLORIDE 99 mmol/L (97-110); CREATININE 0.35 mg/dl (0.61-1.24); GLUCOSE 118 mg/dl (70-220); MAGNESIUM 1.6 mg/dl (1.7-2.5); POTASSIUM 5.2 mmol/L (3.5-5.1); SODIUM 138 mmol/L (135-144)
[2018-01-02] MEDS: ESCITALOPRAM 10 MG TAB PO (08:18)
[2018-01-02] MEDS: FUROSEMIDE 20 MG TAB PO (08:18)
[2018-01-02] MEDS: DOCUSATE SODIUM 100 MG CAP PO ×2 (08:18→21:00)
[2018-01-02] MEDS: DILTIAZEM (CD) 180 MG CAP PO (08:18)
[2018-01-02] MEDS: ASPIRIN 81 MG TAB PO (08:18)
[2018-01-02] MEDS: DONEPEZIL 10 MG TAB PO (08:18)
[2018-01-02] MEDS: MAGNESIUM OXIDE 400 MG TAB PO ×2 (08:18→21:00)
[2018-01-02] MEDS: SOD PHOS MONO/DIBAS 250 MG TAB PO ×3 (08:18→21:00)
[2018-01-02] MEDS: QUETIAPINE 25 MG TAB PO (08:19)
[2018-01-02] MEDS: LISINOPRIL 5 MG TAB PO (08:19)
[2018-01-02] MEDS: MEMANTINE 5 MG TAB PO (08:19)
[2018-01-02] MEDS: LINAGLIPTIN 5 MG TABLET PO (08:19)
[2018-01-02] MEDS: IPRATROPIUM (NEB) 0.5 MG/2.5 ML AMP HHN ×4 (08:59→23:13)
[2018-01-02] MEDS: HYPROMELLOSE 0.5% 15 ML OPH BOTH EYES ×2 (09:15→22:20)
[2018-01-02] MEDS: ENOXAPARIN 40 MG/0.4 ML SYG SC (09:20)
[2018-01-02] MEDS: LEVETIRACETAM IV 1,250 MG in DEXTROSE 5% 100 ML IVPB ×2 (09:44→22:19)
[2018-01-02] MEDS ORDERED: MAGNESIUM SULFATE 1 GM/D5W 100 ML IVPB (15:00)
[2018-01-02] MEDS: MAGNESIUM SULFATE 2 GM/50 ML 50 ML IVPB ×2 (16:03→23:33)
[2018-01-02] MEDS: DEXTROSE 5%-0.45% NACL 1,000 ML IV (16:04)
[2018-01-02] MEDS: INSULIN GLARGINE [LANTus] (100 UNITS/ML) SYG SC (20:31)
[2018-01-02] MEDS: ATORVASTATIN 20 MG TAB PO (21:00)
[2018-01-02] MEDS: TAMSULOSIN (SR) 0.4 MG CAP PO (21:00)
[2018-01-02] MEDS: DILTIAZEM 25 MG INJ IV (22:47)
[2018-01-02] MEDS: SOD CHLORIDE 0.9% 250 ML IV (23:01)
[2018-01-03] MEDS: DEXTROSE 5%-0.45% NACL 1,000 ML IV ×3 (01:30→16:58)
[2018-01-03] MEDS: PANTOPRAZOLE 40 MG INJ IV (05:17)
[2018-01-03] MEDS: METOCLOPRAMIDE 10 MG INJ IV ×4 (05:17→23:35)
[2018-01-03] MEDS: Insulin NOVOLOG SS MILD Algorithm (NPO/TPN/ENTERAL FEEDS) SC ×4 (05:23→23:38)
[2018-01-03] MEDS: DILTIAZEM (CD) 180 MG CAP PO (09:00)
[2018-01-03] MEDS: FUROSEMIDE 20 MG TAB PO (09:00)
[2018-01-03] MEDS: MEMANTINE 5 MG TAB PO (09:00)
[2018-01-03] MEDS: QUETIAPINE 25 MG TAB PO (09:00)
[2018-01-03] MEDS: HYPROMELLOSE 0.5% 15 ML OPH BOTH EYES ×2 (09:00→20:11)
[2018-01-03] MEDS: DOCUSATE SODIUM 100 MG CAP PO ×2 (09:00→20:11)
[2018-01-03] MEDS: MAGNESIUM OXIDE 400 MG TAB PO ×2 (09:00→20:12)
[2018-01-03] MEDS: ASPIRIN 81 MG TAB PO (09:00)
[2018-01-03] MEDS: ESCITALOPRAM 10 MG TAB PO (09:00)
[2018-01-03] MEDS: DONEPEZIL 10 MG TAB PO (09:00)
[2018-01-03] MEDS: LISINOPRIL 5 MG TAB PO (09:00)
[2018-01-03] MEDS: LINAGLIPTIN 5 MG TABLET PO (09:00)
[2018-01-03] MEDS: SOD PHOS MONO/DIBAS 250 MG TAB PO ×3 (09:00→20:11)
[2018-01-03] MEDS: ENOXAPARIN 40 MG/0.4 ML SYG SC (09:09)
[2018-01-03] MEDS: LEVETIRACETAM IV 1,250 MG in DEXTROSE 5% 100 ML IVPB ×2 (09:09→21:05)
[2018-01-03] MEDS: IPRATROPIUM (NEB) 0.5 MG/2.5 ML AMP HHN ×3 (09:21→22:46)
[2018-01-03] MEDS: HALOPERIDOL 5 MG INJ IV ×2 (11:55→18:44)
[2018-01-03 12:08] LABS: ADD MAN DIFF? NO
[2018-01-03 12:12] LABS: BASOPHILS % 0.4 % (0.0-2.0); EOSINOPHILS # 0.1 10^3/ul (0.0-0.5); EOSINOPHILS % 1.2 % (0.0-7.0); HEMATOCRIT 36.5 % (42.0-52.0); LYMPHOCYTES # 1.6 10^3/ul (0.8-2.9); LYMPHOCYTES % 20.7 % (15.0-51.0); MEAN CORPUSCULAR HEMOGLOBIN 28.8 pg (29.0-33.0); MEAN CORPUSCULAR HGB CONC 32.9 g/dl (32.0-37.0); MEAN CORPUSCULAR VOLUME 87.5 fl (82.0-101.0); MEAN PLATELET VOLUME 11.4 fl (7.4-10.4); MONOCYTES % 12.7 % (0.0-11.0); NEUTROPHIL # 4.7 10^3/ul (1.6-7.5); POSITIVE DIFF @See below; RED BLOOD COUNT 4.17 10^6/ul (4.70-6.10)
[2018-01-03 12:12] LABS: WHITE BLOOD COUNT 7.7 10^3/ul (4.8-10.8)
[2018-01-03 12:19] LABS: PLATELET COUNT 150 10^3/UL (140-415)
[2018-01-03 12:43] LABS: ANION GAP 7 (5-13); BLOOD UREA NITROGEN 3 mg/dl (7-20); CALCIUM 8.9 mg/dl (8.4-10.2); CARBON DIOXIDE 29 mmol/L (21-31); CHLORIDE 96 mmol/L (97-110); CREATININE 0.36 mg/dl (0.61-1.24); GLUCOSE 152 mg/dl (70-220); POTASSIUM 4.7 mmol/L (3.5-5.1); SODIUM 132 mmol/L (135-144)
[2018-01-03 12:43] LABS: MAGNESIUM 1.8 mg/dl (1.7-2.5)
[2018-01-03 13:07] LABS: ANISOCYTOSIS 1+ (0-0); BAND NEUTROPHILS #M 0.2 10^3/ul (0.0-0.6); BAND NEUTROPHILS % (M) 3 % (0-4); BURR CELLS 1+ (0-0); EOSINOPHILS % (M) 5 % (0-7); LYMPHOCYTES #M 1.6 10^3/ul (0.8-2.9); LYMPHOCYTES % (M) 21 % (15-51); MICROCYTOSIS 1+ (0-0); MONOCYTE #M 0.9 10^3/ul (0.3-0.9); MONOCYTES % (M) 12 % (0-11); MYELOCYTES % (M) 1 % (0-0); PLATELET ESTIMATE NORMAL; POIKILOCYTOSIS 2+ (0-0); POLYCHROMASIA 3+ (0-0); REACTIVE LYMPHOCYTES% (M) 1 % (0-0); SEG NEUT #M 4.4 10^3/ul (1.6-7.5); SEGMENTED NEUTROPHILS (M) % 57 % (39-77); SMUDGE%M 8 % (0-0)
[2018-01-03] MEDS: DILTIAZEM 25 MG INJ IV (13:45)
[2018-01-03] MEDS: METOPROLOL 5 MG INJ IV (14:01)
[2018-01-03] MEDS: NYSTATIN SUSP 5 ML CUP PO ×2 (16:20→20:12)
[2018-01-03] MEDS: MAGNESIUM SULFATE 2 GM/50 ML 50 ML IVPB (18:48)
[2018-01-03] MEDS: INSULIN GLARGINE [LANTus] (100 UNITS/ML) SYG SC (20:09)
[2018-01-03] MEDS: TAMSULOSIN (SR) 0.4 MG CAP PO (20:11)
[2018-01-03] MEDS: ATORVASTATIN 20 MG TAB PO (20:12)
[2018-01-04] MEDS: DEXTROSE 5%-0.45% NACL 1,000 ML IV ×3 (05:23→23:30)
[2018-01-04] MEDS: PANTOPRAZOLE 40 MG INJ IV (05:29)
[2018-01-04] MEDS: METOCLOPRAMIDE 10 MG INJ IV ×4 (05:29→23:23)
[2018-01-04] MEDS: Insulin NOVOLOG SS MILD Algorithm (NPO/TPN/ENTERAL FEEDS) SC ×4 (05:35→23:25)
[2018-01-04 06:06] LABS: ADD MAN DIFF? NO
[2018-01-04 06:14] LABS: BASOPHILS % 0.3 % (0.0-2.0); EOSINOPHILS # 0.1 10^3/ul (0.0-0.5); EOSINOPHILS % 1.3 % (0.0-7.0); HEMATOCRIT 33.5 % (42.0-52.0); LYMPHOCYTES # 1.5 10^3/ul (0.8-2.9); LYMPHOCYTES % 23.9 % (15.0-51.0); MEAN CORPUSCULAR HGB CONC 32.8 g/dl (32.0-37.0); MEAN CORPUSCULAR VOLUME 88.4 fl (82.0-101.0); MEAN PLATELET VOLUME 10.7 fl (7.4-10.4); MONOCYTE # 0.9 10^3/ul (0.3-0.9); MONOCYTES % 15.1 % (0.0-11.0); NEUTROPHIL # 3.5 10^3/ul (1.6-7.5); NEUTROPHILS % 57.3 % (39.0-77.0); PLATELET COUNT 234 10^3/UL (140-415); RED BLOOD COUNT 3.79 10^6/ul (4.70-6.10); RED CELL DISTRIBUTION WIDTH 15.9 % (11.5-14.5)
[2018-01-04 06:14] LABS: WHITE BLOOD COUNT 6.1 10^3/ul (4.8-10.8)
[2018-01-04 06:46] LABS: ALANINE AMINOTRANSFERASE 118 IU/L (13-69); ALBUMIN/GLOBULIN RATIO 1.11; ALKALINE PHOSPHATASE 74 IU/L (42-121); ANION GAP 7 (5-13); ASPARTATE AMINO TRANSFERASE 34 IU/L (15-46); BILIRUBIN,INDIRECT 0.4 mg/dl (0-1.1); BILIRUBIN,TOTAL 0.4 mg/dl (0.2-1.3); CALCIUM 8.6 mg/dl (8.4-10.2); CARBON DIOXIDE 31 mmol/L (21-31); CHLORIDE 99 mmol/L (97-110); GLUCOSE 143 mg/dl (70-220); MAGNESIUM 1.9 mg/dl (1.7-2.5); POTASSIUM 4.1 mmol/L (3.5-5.1); SODIUM 137 mmol/L (135-144); TOTAL PROTEIN 5.7 g/dl (6.1-8.1)
[2018-01-04 06:47] LABS: BLOOD UREA NITROGEN < 2 mg/dl (7-20)
[2018-01-04] MEDS: IPRATROPIUM (NEB) 0.5 MG/2.5 ML AMP HHN ×2 (07:46→15:53)
[2018-01-04] MEDS: ESCITALOPRAM 10 MG TAB PO (09:00)
[2018-01-04] MEDS: MAGNESIUM OXIDE 400 MG TAB PO ×2 (09:00→21:00)
[2018-01-04] MEDS: DILTIAZEM (CD) 180 MG CAP PO (09:00)
[2018-01-04] MEDS: DOCUSATE SODIUM 100 MG CAP PO ×2 (09:00→21:00)
[2018-01-04] MEDS: DONEPEZIL 10 MG TAB PO (09:00)
[2018-01-04] MEDS: SOD PHOS MONO/DIBAS 250 MG TAB PO ×3 (09:00→21:00)
[2018-01-04] MEDS: FUROSEMIDE 20 MG TAB PO (09:00)
[2018-01-04] MEDS: NYSTATIN SUSP 5 ML CUP PO ×4 (09:00→21:00)
[2018-01-04] MEDS: QUETIAPINE 25 MG TAB PO (09:00)
[2018-01-04] MEDS: LISINOPRIL 5 MG TAB PO (09:00)
[2018-01-04] MEDS: LINAGLIPTIN 5 MG TABLET PO (09:00)
[2018-01-04] MEDS: ASPIRIN 81 MG TAB PO (09:00)
[2018-01-04] MEDS: MEMANTINE 5 MG TAB PO (09:00)
[2018-01-04] MEDS: LEVETIRACETAM IV 1,250 MG in DEXTROSE 5% 100 ML IVPB ×2 (09:46→21:41)
[2018-01-04] MEDS: HYPROMELLOSE 0.5% 15 ML OPH BOTH EYES ×2 (09:47→21:02)
[2018-01-04] MEDS: ENOXAPARIN 40 MG/0.4 ML SYG SC (09:49)
[2018-01-04] MEDS: LORAZEPAM 2 MG INJ IV (12:52)
[2018-01-04] MEDS: MAGNESIUM SULFATE 3 GM in DEXTROSE 5% 100 ML IVPB (18:08)
[2018-01-04] MEDS: INSULIN GLARGINE [LANTus] (100 UNITS/ML) SYG SC (21:00)
[2018-01-04] MEDS: TAMSULOSIN (SR) 0.4 MG CAP PO (21:00)
[2018-01-04] MEDS: ATORVASTATIN 20 MG TAB PO (21:00)
[2018-01-05] MEDS: IPRATROPIUM (NEB) 0.5 MG/2.5 ML AMP HHN ×4 (00:39→23:07)
[2018-01-05] MEDS: METOCLOPRAMIDE 10 MG INJ IV ×4 (05:13→23:39)
[2018-01-05] MEDS: Insulin NOVOLOG SS MILD Algorithm (NPO/TPN/ENTERAL FEEDS) SC ×3 (05:13→17:29)
[2018-01-05] MEDS: PANTOPRAZOLE 40 MG INJ IV (05:13)
[2018-01-05 05:59] LABS: ADD MAN DIFF? NO
[2018-01-05 06:04] LABS: BASOPHILS % 0.3 % (0.0-2.0); EOSINOPHILS # 0.2 10^3/ul (0.0-0.5); EOSINOPHILS % 2.4 % (0.0-7.0); HEMATOCRIT 33.2 % (42.0-52.0); HEMOGLOBIN 10.8 g/dl (14.0-18.0); LYMPHOCYTES # 1.4 10^3/ul (0.8-2.9); LYMPHOCYTES % 20.4 % (15.0-51.0); MEAN CORPUSCULAR HEMOGLOBIN 28.8 pg (29.0-33.0); MEAN CORPUSCULAR HGB CONC 32.5 g/dl (32.0-37.0); MEAN CORPUSCULAR VOLUME 88.5 fl (82.0-101.0); MEAN PLATELET VOLUME 12.3 fl (7.4-10.4); MONOCYTE # 1.1 10^3/ul (0.3-0.9); MONOCYTES % 15.9 % (0.0-11.0); NEUTROPHILS % 59.1 % (39.0-77.0); POSITIVE DIFF @See below; RED BLOOD COUNT 3.75 10^6/ul (4.70-6.10); RED CELL DISTRIBUTION WIDTH 15.7 % (11.5-14.5)
[2018-01-05 06:04] LABS: WHITE BLOOD COUNT 6.8 10^3/ul (4.8-10.8)
[2018-01-05 06:17] LABS: PLATELET COUNT 122 10^3/UL (140-415)
[2018-01-05 06:28] LABS: ANION GAP 5 (5-13); CALCIUM 8.7 mg/dl (8.4-10.2); CARBON DIOXIDE 30 mmol/L (21-31); CHLORIDE 100 mmol/L (97-110); CREATININE 0.39 mg/dl (0.61-1.24); GLUCOSE 115 mg/dl (70-220); POTASSIUM 4.2 mmol/L (3.5-5.1); SODIUM 135 mmol/L (135-144)
[2018-01-05 06:31] LABS: BLOOD UREA NITROGEN < 2 mg/dl (7-20)
[2018-01-05] MEDS: DILTIAZEM (CD) 180 MG CAP PO (08:53)
[2018-01-05] MEDS: ASPIRIN 81 MG TAB PO (08:53)
[2018-01-05] MEDS: DONEPEZIL 10 MG TAB PO (08:53)
[2018-01-05] MEDS: SOD PHOS MONO/DIBAS 250 MG TAB PO ×3 (08:54→20:25)
[2018-01-05] MEDS: MAGNESIUM OXIDE 400 MG TAB PO ×2 (08:54→20:25)
[2018-01-05] MEDS: FUROSEMIDE 20 MG TAB PO (08:54)
[2018-01-05] MEDS: MEMANTINE 5 MG TAB PO (08:54)
[2018-01-05] MEDS: DOCUSATE SODIUM 100 MG CAP PO ×2 (08:54→20:24)
[2018-01-05] MEDS: ESCITALOPRAM 10 MG TAB PO (08:54)
[2018-01-05] MEDS: LINAGLIPTIN 5 MG TABLET PO (08:55)
[2018-01-05] MEDS: LISINOPRIL 5 MG TAB PO (08:55)
[2018-01-05] MEDS: QUETIAPINE 25 MG TAB PO (08:55)
[2018-01-05] MEDS: NYSTATIN SUSP 5 ML CUP PO ×4 (09:00→20:25)
[2018-01-05] MEDS: HYPROMELLOSE 0.5% 15 ML OPH BOTH EYES ×2 (09:02→20:24)
[2018-01-05] MEDS: ENOXAPARIN 40 MG/0.4 ML SYG SC (09:13)
[2018-01-05] MEDS: BARIUM SULFATE 135 ML (E-Z HD) PO (10:28)
[2018-01-05] MEDS: LEVETIRACETAM IV 1,250 MG in DEXTROSE 5% 100 ML IVPB ×2 (11:22→21:51)
[2018-01-05] MEDS: LORAZEPAM 2 MG INJ IV (12:20)
[2018-01-05] MEDS: DEXTROSE 5%-0.45% NACL 1,000 ML IV (12:28)
[2018-01-05] MEDS: ATORVASTATIN 20 MG TAB PO (20:24)
[2018-01-05] MEDS: TAMSULOSIN (SR) 0.4 MG CAP PO (20:24)
[2018-01-05] MEDS: INSULIN ASPART [NOVOLOG] 3 ML PEN SC (20:25)
[2018-01-05] MEDS: INSULIN GLARGINE [LANTus] (100 UNITS/ML) SYG SC (20:37)
[2018-01-06] MEDS: HALOPERIDOL 5 MG INJ IM (00:39)
[2018-01-06] MEDS: ACCU-CHEK XX (02:00)
[2018-01-06] MEDS: LORAZEPAM 2 MG INJ IV (02:15)
[2018-01-06] MEDS: METOCLOPRAMIDE 10 MG INJ IV ×3 (05:44→18:33)
[2018-01-06] MEDS: PANTOPRAZOLE 40 MG INJ IV (05:44)
[2018-01-06 06:01] LABS: ALANINE AMINOTRANSFERASE 82 IU/L (13-69); ALBUMIN 3.3 g/dl (3.3-4.9); ALBUMIN/GLOBULIN RATIO 1.13; ALKALINE PHOSPHATASE 88 IU/L (42-121); ANION GAP 9 (5-13); ASPARTATE AMINO TRANSFERASE 24 IU/L (15-46); BILIRUBIN,INDIRECT 0.5 mg/dl (0-1.1); BILIRUBIN,TOTAL 0.5 mg/dl (0.2-1.3); BLOOD UREA NITROGEN 3 mg/dl (7-20); CALCIUM 8.7 mg/dl (8.4-10.2); CARBON DIOXIDE 30 mmol/L (21-31); CHLORIDE 97 mmol/L (97-110); CREATININE 0.45 mg/dl (0.61-1.24); GLUCOSE 163 mg/dl (70-220); MAGNESIUM 1.5 mg/dl (1.7-2.5); POTASSIUM 4.3 mmol/L (3.5-5.1); SODIUM 136 mmol/L (135-144); TOTAL PROTEIN 6.2 g/dl (6.1-8.1)
[2018-01-06] MEDS: IPRATROPIUM (NEB) 0.5 MG/2.5 ML AMP HHN ×2 (08:09→16:00)
[2018-01-06] MEDS: INSULIN ASPART [NOVOLOG] 3 ML PEN SC ×4 (09:02→21:00)
[2018-01-06] MEDS: LINAGLIPTIN 5 MG TABLET PO (09:12)
[2018-01-06] MEDS: HYPROMELLOSE 0.5% 15 ML OPH BOTH EYES ×2 (09:12→21:21)
[2018-01-06] MEDS: MEMANTINE 5 MG TAB PO (09:13)
[2018-01-06] MEDS: QUETIAPINE 25 MG TAB PO (09:13)
[2018-01-06] MEDS: ASPIRIN 81 MG TAB PO (09:14)
[2018-01-06] MEDS: MAGNESIUM OXIDE 400 MG TAB PO ×2 (09:14→21:00)
[2018-01-06] MEDS: ESCITALOPRAM 10 MG TAB PO (09:14)
[2018-01-06] MEDS: SOD PHOS MONO/DIBAS 250 MG TAB PO ×3 (09:14→21:00)
[2018-01-06] MEDS: DOCUSATE SODIUM 100 MG CAP PO ×2 (09:14→21:00)
[2018-01-06] MEDS: FUROSEMIDE 20 MG TAB PO (09:15)
[2018-01-06] MEDS: DONEPEZIL 10 MG TAB PO (09:16)
[2018-01-06] MEDS: LISINOPRIL 5 MG TAB PO (09:16)
[2018-01-06] MEDS: NYSTATIN SUSP 5 ML CUP PO ×4 (09:16→21:00)
[2018-01-06] MEDS: ENOXAPARIN 40 MG/0.4 ML SYG SC (09:19)
[2018-01-06] MEDS: DILTIAZEM (CD) 180 MG CAP PO (09:28)
[2018-01-06] MEDS: LEVETIRACETAM IV 1,250 MG in DEXTROSE 5% 100 ML IVPB ×2 (10:36→22:09)
[2018-01-06] MEDS: DEXTROSE 5%-0.45% NACL 1,000 ML IV (10:37)
[2018-01-06] MEDS: MAGNESIUM SULFATE 4 GM/100 ML 100 ML IVPB (11:53)
[2018-01-06 16:11] LABS: AADO2 Arterial 585.4 mmHg (7.0-24.0); Allen Test ACCEPTAB; Arterial Base Excess 2.5 mmol/L (-3.0-3); Arterial Blood Gas Oxygen Sat 94.7 mmHG (95.0-100.0); Arterial COHb 0.7 % (0.0-3.0); Arterial Fraction of Oxyhgb 93.8 % (93.0-99.0); Arterial HCO3 28.2 mmol/L (22.0-26.0); Arterial MetHb 0.3 % (0.0-1.5); Arterial Total Hemglobin 11.3 g/dl (12.0-18.0); Arterial pCO2 48.9 mmhg (35-45); MODE MASK - NRB; Site Left Radial
[2018-01-06 16:13] LABS: ADD MAN DIFF? NO
[2018-01-06 16:17] LABS: BASOPHILS % 0.1 % (0.0-2.0); EOSINOPHILS % 0.4 % (0.0-7.0); HEMOGLOBIN 10.4 g/dl (14.0-18.0); LYMPHOCYTES # 1.8 10^3/ul (0.8-2.9); LYMPHOCYTES % 16.8 % (15.0-51.0); MEAN CORPUSCULAR HEMOGLOBIN 28.9 pg (29.0-33.0); MEAN CORPUSCULAR HGB CONC 32.5 g/dl (32.0-37.0); MEAN CORPUSCULAR VOLUME 88.9 fl (82.0-101.0); MONOCYTE # 1.2 10^3/ul (0.3-0.9); MONOCYTES % 10.5 % (0.0-11.0); NEUTROPHIL # 7.8 10^3/ul (1.6-7.5); NEUTROPHILS % 70.8 % (39.0-77.0); PLATELET COUNT 257 10^3/UL (140-415); RED CELL DISTRIBUTION WIDTH 15.4 % (11.5-14.5)
[2018-01-06 16:33] LABS: LACTIC ACID 1.7 mmol/L (0.5-2.0)
[2018-01-06 16:35] LABS: ALANINE AMINOTRANSFERASE 61 IU/L (13-69); ALBUMIN 3.1 g/dl (3.3-4.9); ALKALINE PHOSPHATASE 94 IU/L (42-121); ANION GAP 8 (5-13); ASPARTATE AMINO TRANSFERASE 19 IU/L (15-46); BILIRUBIN,INDIRECT 0.3 mg/dl (0-1.1); BILIRUBIN,TOTAL 0.3 mg/dl (0.2-1.3); BLOOD UREA NITROGEN 4 mg/dl (7-20); CALCIUM 8.8 mg/dl (8.4-10.2); CARBON DIOXIDE 33 mmol/L (21-31); CHLORIDE 93 mmol/L (97-110); GLUCOSE 177 mg/dl (70-220); MAGNESIUM 3.5 mg/dl (1.7-2.5); PHOSPHORUS 4.9 mg/dl (2.5-4.9); POTASSIUM 4.1 mmol/L (3.5-5.1); SODIUM 134 mmol/L (135-144); TOTAL PROTEIN 5.3 g/dl (6.1-8.1)
[2018-01-06 16:45] LABS: TROPONIN-I < 0.012 ng/ml (0.000-0.120)
[2018-01-06] MEDS: SOD CHLORIDE 0.9% 1,000 ML IV ×2 (16:52→17:23)
[2018-01-06] MEDS ORDERED: NORepinephrine 8MG/250 ML (PMX 250 ML (18:14)
[2018-01-06] MEDS: NORepinephrine 8MG/250 ML (PMX 250 ML IV (18:40)
[2018-01-06] MEDS: TAMSULOSIN (SR) 0.4 MG CAP PO (21:00)
[2018-01-06] MEDS: INSULIN GLARGINE [LANTus] (100 UNITS/ML) SYG SC (21:16)
[2018-01-06] MEDS: ATORVASTATIN 20 MG TAB PO (21:18)
[2018-01-06 21:43] LABS: AADO2 Arterial 166.6 mmHg (7.0-24.0); Allen Test ACCEPTAB; Arterial Base Excess 2.5 mmol/L (-3.0-3); Arterial Blood Gas Oxygen Sat 99.1 mmHG (95.0-100.0); Arterial COHb 0.2 % (0.0-3.0); Arterial Fraction of Oxyhgb 98.3 % (93.0-99.0); Arterial HCO3 28.5 mmol/L (22.0-26.0); Arterial MetHb 0.6 % (0.0-1.5); Arterial Total Hemglobin 11.9 g/dl (12.0-18.0); Arterial pCO2 49.9 mmhg (35-45); Blood Gas IEPAP 20/5; Blood Gas PS 15; MODE MASK - BIPAP; Site Right Radial
[2018-01-06] MEDS: DILTIAZEM 25 MG INJ IV (23:01)
[2018-01-07 00:02] LABS: TROPONIN-I < 0.012 ng/ml (0.000-0.120)
[2018-01-07] MEDS: METOCLOPRAMIDE 10 MG INJ IV ×4 (00:16→17:16)
[2018-01-07] MEDS: IPRATROPIUM (NEB) 0.5 MG/2.5 ML AMP HHN ×4 (00:33→23:43)
[2018-01-07] MEDS: ACCU-CHEK XX (02:00)
[2018-01-07 06:15] LABS: ALANINE AMINOTRANSFERASE 69 IU/L (13-69); ALBUMIN 3.1 g/dl (3.3-4.9); ALBUMIN/GLOBULIN RATIO 1.14; ALKALINE PHOSPHATASE 107 IU/L (42-121); ANION GAP 5 (5-13); ASPARTATE AMINO TRANSFERASE 18 IU/L (15-46); BILIRUBIN,INDIRECT 0.4 mg/dl (0-1.1); BILIRUBIN,TOTAL 0.4 mg/dl (0.2-1.3); BLOOD UREA NITROGEN 5 mg/dl (7-20); CALCIUM 8.3 mg/dl (8.4-10.2); CARBON DIOXIDE 32 mmol/L (21-31); CHLORIDE 100 mmol/L (97-110); CREATININE 0.39 mg/dl (0.61-1.24); GLUCOSE 119 mg/dl (70-220); MAGNESIUM 1.9 mg/dl (1.7-2.5); SODIUM 137 mmol/L (135-144); TOTAL PROTEIN 5.8 g/dl (6.1-8.1)
[2018-01-07] MEDS: PANTOPRAZOLE 40 MG INJ IV (06:15)
[2018-01-07] MEDS: SOD CHLORIDE 0.9% 1,000 ML IV (06:19)
[2018-01-07] MEDS: INSULIN ASPART [NOVOLOG] 3 ML PEN SC ×4 (09:00→20:53)
[2018-01-07] MEDS: QUETIAPINE 25 MG TAB PO (09:00)
[2018-01-07] MEDS: MEMANTINE 5 MG TAB PO (09:00)
[2018-01-07] MEDS: ESCITALOPRAM 10 MG TAB PO (09:00)
[2018-01-07] MEDS: LISINOPRIL 5 MG TAB PO (09:00)
[2018-01-07] MEDS: DONEPEZIL 10 MG TAB PO (09:00)
[2018-01-07] MEDS: MAGNESIUM OXIDE 400 MG TAB PO ×2 (09:00→20:45)
[2018-01-07] MEDS: SOD PHOS MONO/DIBAS 250 MG TAB PO ×3 (09:00→20:45)
[2018-01-07] MEDS: NYSTATIN SUSP 5 ML CUP PO ×4 (09:00→20:45)
[2018-01-07] MEDS: ASPIRIN 81 MG TAB PO (09:00)
[2018-01-07] MEDS: FUROSEMIDE 20 MG TAB PO (09:00)
[2018-01-07] MEDS: LINAGLIPTIN 5 MG TABLET PO (09:00)
[2018-01-07] MEDS: DILTIAZEM (CD) 180 MG CAP PO (09:00)
[2018-01-07] MEDS: HYPROMELLOSE 0.5% 15 ML OPH BOTH EYES ×2 (09:31→21:27)
[2018-01-07] MEDS: LEVETIRACETAM IV 1,250 MG in DEXTROSE 5% 100 ML IVPB ×2 (09:34→20:54)
[2018-01-07] MEDS: ENOXAPARIN 40 MG/0.4 ML SYG SC (09:38)
[2018-01-07] MEDS: DOCUSATE SODIUM 100 MG CAP PO ×2 (10:17→20:44)
[2018-01-07] MEDS: MAGNESIUM SULFATE 3 GM in DEXTROSE 5% 100 ML IVPB (10:26)
[2018-01-07] MEDS: MEROPENEM 500MG/50 ML (PMX) 50 ML IVPB ×2 (16:31→22:04)
[2018-01-07] MEDS: TAMSULOSIN (SR) 0.4 MG CAP PO (20:45)
[2018-01-07] MEDS: ATORVASTATIN 20 MG TAB PO (20:45)
[2018-01-07] MEDS: INSULIN GLARGINE [LANTus] (100 UNITS/ML) SYG SC (20:57)
[2018-01-08] MEDS: METOCLOPRAMIDE 10 MG INJ IV ×4 (00:20→18:03)
[2018-01-08] MEDS: SOD CHLORIDE 0.9% 1,000 ML IV ×2 (00:20→10:54)
[2018-01-08] MEDS: INSULIN ASPART [NOVOLOG] 3 ML PEN SC ×6 (01:00→21:59)
[2018-01-08] MEDS: LORAZEPAM 2 MG INJ IV ×2 (02:02→12:54)
[2018-01-08 05:26] LABS: ADD MAN DIFF? NO
[2018-01-08 05:30] LABS: BASOPHILS % 0.2 % (0.0-2.0); EOSINOPHILS # 0.1 10^3/ul (0.0-0.5); EOSINOPHILS % 1.2 % (0.0-7.0); HEMATOCRIT 29.7 % (42.0-52.0); HEMOGLOBIN 9.4 g/dl (14.0-18.0); LYMPHOCYTES # 1.2 10^3/ul (0.8-2.9); LYMPHOCYTES % 20.2 % (15.0-51.0); MEAN CORPUSCULAR HEMOGLOBIN 28.7 pg (29.0-33.0); MEAN CORPUSCULAR HGB CONC 31.6 g/dl (32.0-37.0); MEAN CORPUSCULAR VOLUME 90.5 fl (82.0-101.0); MEAN PLATELET VOLUME 11.4 fl (7.4-10.4); MONOCYTE # 0.9 10^3/ul (0.3-0.9); MONOCYTES % 14.3 % (0.0-11.0); NEUTROPHIL # 3.8 10^3/ul (1.6-7.5); NEUTROPHILS % 63.1 % (39.0-77.0); PLATELET COUNT 150 10^3/UL (140-415); RED BLOOD COUNT 3.28 10^6/ul (4.70-6.10); RED CELL DISTRIBUTION WIDTH 15.8 % (11.5-14.5)
[2018-01-08 05:54] LABS: ALANINE AMINOTRANSFERASE 47 IU/L (13-69); ALBUMIN 2.9 g/dl (3.3-4.9); ALBUMIN/GLOBULIN RATIO 1.31; ALKALINE PHOSPHATASE 88 IU/L (42-121); ANION GAP 4 (5-13); ASPARTATE AMINO TRANSFERASE 22 IU/L (15-46); BILIRUBIN,INDIRECT 0.3 mg/dl (0-1.1); BILIRUBIN,TOTAL 0.3 mg/dl (0.2-1.3); BLOOD UREA NITROGEN 3 mg/dl (7-20); CALCIUM 8.5 mg/dl (8.4-10.2); CARBON DIOXIDE 32 mmol/L (21-31); CHLORIDE 101 mmol/L (97-110); CREATININE 0.41 mg/dl (0.61-1.24); GLUCOSE 72 mg/dl (70-220); MAGNESIUM 1.7 mg/dl (1.7-2.5); POTASSIUM 4.1 mmol/L (3.5-5.1); SODIUM 137 mmol/L (135-144); TOTAL PROTEIN 5.1 g/dl (6.1-8.1)
[2018-01-08] MEDS: MEROPENEM 500MG/50 ML (PMX) 50 ML IVPB ×3 (06:09→23:06)
[2018-01-08] MEDS: PANTOPRAZOLE 40 MG INJ IV (06:09)
[2018-01-08] MEDS: IPRATROPIUM (NEB) 0.5 MG/2.5 ML AMP HHN ×3 (08:24→23:29)
[2018-01-08] MEDS: ENOXAPARIN 40 MG/0.4 ML SYG SC (08:27)
[2018-01-08] MEDS: HYPROMELLOSE 0.5% 15 ML OPH BOTH EYES ×2 (08:28→20:44)
[2018-01-08] MEDS: LINAGLIPTIN 5 MG TABLET PO (09:00)
[2018-01-08 09:05] LABS: AADO2 Arterial 67.8 mmHg (7.0-24.0); Allen Test ACCEPTAB; Arterial Base Excess 2.2 mmol/L (-3.0-3); Arterial Blood Gas Oxygen Sat 94.6 mmHG (95.0-100.0); Arterial COHb 0.4 % (0.0-3.0); Arterial Fraction of Oxyhgb 93.9 % (93.0-99.0); Arterial MetHb 0.3 % (0.0-1.5); Arterial Total Hemglobin 11.2 g/dl (12.0-18.0); Arterial pCO2 56.1 mmhg (35-45); MODE NASAL CANNULA; Site Right Radial
[2018-01-08] MEDS: ESCITALOPRAM 10 MG TAB PO (09:16)
[2018-01-08] MEDS: MAGNESIUM OXIDE 400 MG TAB PO ×2 (09:18→20:45)
[2018-01-08] MEDS: SOD PHOS MONO/DIBAS 250 MG TAB PO ×3 (09:18→20:45)
[2018-01-08] MEDS: QUETIAPINE 25 MG TAB PO (09:18)
[2018-01-08] MEDS: DILTIAZEM (CD) 180 MG CAP PO (09:18)
[2018-01-08] MEDS: DONEPEZIL 10 MG TAB PO (09:18)
[2018-01-08] MEDS: FUROSEMIDE 20 MG TAB PO (09:19)
[2018-01-08] MEDS: ASPIRIN 81 MG TAB PO (09:19)
[2018-01-08] MEDS: MEMANTINE 5 MG TAB PO (09:19)
[2018-01-08] MEDS: DOCUSATE SODIUM 100 MG CAP PO ×2 (09:19→20:45)
[2018-01-08] MEDS: NYSTATIN SUSP 5 ML CUP PO ×4 (09:20→20:44)
[2018-01-08] MEDS: LISINOPRIL 5 MG TAB PO (09:27)
[2018-01-08] MEDS: LEVETIRACETAM IV 1,250 MG in DEXTROSE 5% 100 ML IVPB ×2 (11:01→22:35)
[2018-01-08] MEDS: MAGNESIUM SULFATE 2 GM/50 ML 50 ML IVPB (18:46)
[2018-01-08] MEDS: ATORVASTATIN 20 MG TAB PO (20:45)
[2018-01-08] MEDS: TAMSULOSIN (SR) 0.4 MG CAP PO (20:45)
[2018-01-08] MEDS: INSULIN GLARGINE [LANTus] (100 UNITS/ML) SYG SC (21:59)
[2018-01-09] MEDS: METOCLOPRAMIDE 10 MG INJ IV ×5 (00:27→23:44)
[2018-01-09] MEDS: LORAZEPAM 2 MG INJ IV (01:08)
[2018-01-09] MEDS: SOD CHLORIDE 0.9% 1,000 ML IV ×2 (01:12→07:51)
[2018-01-09] MEDS: INSULIN ASPART [NOVOLOG] 3 ML PEN SC ×3 (01:45→07:50)
[2018-01-09] MEDS: PANTOPRAZOLE 40 MG INJ IV (05:22)
[2018-01-09] MEDS: MEROPENEM 500MG/50 ML (PMX) 50 ML IVPB ×3 (05:22→22:51)
[2018-01-09 06:08] LABS: ALANINE AMINOTRANSFERASE 44 IU/L (13-69); ALBUMIN 2.9 g/dl (3.3-4.9); ALBUMIN/GLOBULIN RATIO 1.45; ALKALINE PHOSPHATASE 84 IU/L (42-121); ANION GAP 6 (5-13); ASPARTATE AMINO TRANSFERASE 14 IU/L (15-46); BILIRUBIN,INDIRECT 0.3 mg/dl (0-1.1); BILIRUBIN,TOTAL 0.3 mg/dl (0.2-1.3); BLOOD UREA NITROGEN 6 mg/dl (7-20); CALCIUM 8.3 mg/dl (8.4-10.2); CARBON DIOXIDE 34 mmol/L (21-31); CHLORIDE 98 mmol/L (97-110); GLUCOSE 148 mg/dl (70-220); MAGNESIUM 1.6 mg/dl (1.7-2.5); POTASSIUM 3.7 mmol/L (3.5-5.1); SODIUM 138 mmol/L (135-144); TOTAL PROTEIN 4.9 g/dl (6.1-8.1)
[2018-01-09] MEDS: IPRATROPIUM (NEB) 0.5 MG/2.5 ML AMP HHN ×2 (08:00→15:57)
[2018-01-09] MEDS: DOCUSATE SODIUM 100 MG CAP PO ×2 (08:21→20:32)
[2018-01-09] MEDS: NYSTATIN SUSP 5 ML CUP PO ×4 (08:21→20:32)
[2018-01-09] MEDS: QUETIAPINE 25 MG TAB PO (08:22)
[2018-01-09] MEDS: MAGNESIUM OXIDE 400 MG TAB PO ×2 (08:22→20:32)
[2018-01-09] MEDS: SOD PHOS MONO/DIBAS 250 MG TAB PO ×3 (08:22→20:35)
[2018-01-09] MEDS: ESCITALOPRAM 10 MG TAB PO (08:22)
[2018-01-09] MEDS: LINAGLIPTIN 5 MG TABLET PO (08:22)
[2018-01-09] MEDS: LISINOPRIL 5 MG TAB PO (08:23)
[2018-01-09] MEDS: MEMANTINE 5 MG TAB PO (08:23)
[2018-01-09] MEDS: DONEPEZIL 10 MG TAB PO (08:23)
[2018-01-09] MEDS: ASPIRIN 81 MG TAB PO (08:23)
[2018-01-09] MEDS: FUROSEMIDE 20 MG TAB PO (08:24)
[2018-01-09] MEDS: HYPROMELLOSE 0.5% 15 ML OPH BOTH EYES ×2 (08:24→20:32)
[2018-01-09] MEDS: DILTIAZEM (CD) 180 MG CAP PO (08:25)
[2018-01-09] MEDS: ENOXAPARIN 40 MG/0.4 ML SYG SC (08:34)
[2018-01-09] MEDS: LEVETIRACETAM IV 1,250 MG in DEXTROSE 5% 100 ML IVPB ×2 (10:37→20:33)
[2018-01-09] MEDS: SPIRONOLACTONE 25 MG TAB PO (13:23)
[2018-01-09] MEDS: POTASSIUM CHLORIDE (SR) 20 MEQ TAB PO (13:24)
[2018-01-09] MEDS: MAGNESIUM SULFATE 4 GM/100 ML 100 ML IVPB (15:10)
[2018-01-09] MEDS: Insulin NOVOLOG SS MILD Algorithm (SS with meals and bedtime) SC ×2 (17:16→20:33)
[2018-01-09] MEDS ORDERED: INSULIN ASPART [NOVOLOG] 3 ML PEN SC (17:30)
[2018-01-09] MEDS: ATORVASTATIN 20 MG TAB PO (20:32)
[2018-01-09] MEDS: TAMSULOSIN (SR) 0.4 MG CAP PO (20:32)
[2018-01-09] MEDS: INSULIN GLARGINE [LANTus] (100 UNITS/ML) SYG SC (21:33)
[2018-01-10] MEDS: IPRATROPIUM (NEB) 0.5 MG/2.5 ML AMP HHN ×3 (00:12→15:34)
[2018-01-10] MEDS: PANTOPRAZOLE 40 MG INJ IV (05:02)
[2018-01-10] MEDS: METOCLOPRAMIDE 10 MG INJ IV ×3 (05:02→17:46)
[2018-01-10] MEDS: MEROPENEM 500MG/50 ML (PMX) 50 ML IVPB (05:02)
[2018-01-10] MEDS: SOD CHLORIDE 0.9% 1,000 ML IV ×2 (05:03→20:06)
[2018-01-10 05:58] LABS: ALANINE AMINOTRANSFERASE 40 IU/L (13-69); ALBUMIN/GLOBULIN RATIO 1.42; ALKALINE PHOSPHATASE 85 IU/L (42-121); ANION GAP 5 (5-13); ASPARTATE AMINO TRANSFERASE 23 IU/L (15-46); BILIRUBIN,INDIRECT 0.2 mg/dl (0-1.1); BILIRUBIN,TOTAL 0.2 mg/dl (0.2-1.3); BLOOD UREA NITROGEN 5 mg/dl (7-20); CALCIUM 8.4 mg/dl (8.4-10.2); CARBON DIOXIDE 33 mmol/L (21-31); CHLORIDE 101 mmol/L (97-110); CREATININE 0.33 mg/dl (0.61-1.24); GLUCOSE 122 mg/dl (70-220); MAGNESIUM 1.8 mg/dl (1.7-2.5); POTASSIUM 4.1 mmol/L (3.5-5.1); SODIUM 139 mmol/L (135-144); TOTAL PROTEIN 5.1 g/dl (6.1-8.1)
[2018-01-10] MEDS: Insulin NOVOLOG SS MILD Algorithm (SS with meals and bedtime) SC ×4 (07:00→21:00)
[2018-01-10] MEDS: LEVETIRACETAM IV 1,250 MG in DEXTROSE 5% 100 ML IVPB ×2 (08:53→21:25)
[2018-01-10] MEDS: HYPROMELLOSE 0.5% 15 ML OPH BOTH EYES ×2 (08:53→21:26)
[2018-01-10] MEDS: NYSTATIN SUSP 5 ML CUP PO ×4 (08:53→21:21)
[2018-01-10] MEDS: LISINOPRIL 5 MG TAB PO (08:54)
[2018-01-10] MEDS: DILTIAZEM (CD) 180 MG CAP PO (08:54)
[2018-01-10] MEDS: DOCUSATE SODIUM 100 MG CAP PO ×2 (08:55→21:21)
[2018-01-10] MEDS: FUROSEMIDE 20 MG TAB PO (08:56)
[2018-01-10] MEDS: LINAGLIPTIN 5 MG TABLET PO (08:56)
[2018-01-10] MEDS: MEMANTINE 5 MG TAB PO (08:56)
[2018-01-10] MEDS: MAGNESIUM OXIDE 400 MG TAB PO ×2 (08:56→21:22)
[2018-01-10] MEDS: DONEPEZIL 10 MG TAB PO (08:57)
[2018-01-10] MEDS: ESCITALOPRAM 10 MG TAB PO (08:57)
[2018-01-10] MEDS: SPIRONOLACTONE 25 MG TAB PO (08:57)
[2018-01-10] MEDS: ASPIRIN 81 MG TAB PO (08:57)
[2018-01-10] MEDS: QUETIAPINE 25 MG TAB PO (08:57)
[2018-01-10] MEDS: ENOXAPARIN 40 MG/0.4 ML SYG SC (08:58)
[2018-01-10] MEDS: SOD PHOS MONO/DIBAS 250 MG TAB PO ×3 (09:12→21:22)
[2018-01-10] MEDS: MAGNESIUM SULFATE 4 GM/100 ML 100 ML IVPB (21:20)
[2018-01-10] MEDS: TAMSULOSIN (SR) 0.4 MG CAP PO (21:21)
[2018-01-10] MEDS: ATORVASTATIN 20 MG TAB PO (21:22)
[2018-01-10] MEDS: INSULIN GLARGINE [LANTus] (100 UNITS/ML) SYG SC (21:28)
[2018-01-11] MEDS: IPRATROPIUM (NEB) 0.5 MG/2.5 ML AMP HHN ×3 (00:18→16:17)
[2018-01-11] MEDS: METOCLOPRAMIDE 10 MG INJ IV ×4 (00:46→18:00)
[2018-01-11 06:06] LABS: ADD MAN DIFF? NO
[2018-01-11 06:30] LABS: ABNORMAL IP MESSAGE 1; BASOPHILS % 0.2 % (0.0-2.0); EOSINOPHILS # 0.2 10^3/ul (0.0-0.5); EOSINOPHILS % 3.1 % (0.0-7.0); HEMATOCRIT 30.9 % (42.0-52.0); HEMOGLOBIN 9.8 g/dl (14.0-18.0); LYMPHOCYTES # 1.1 10^3/ul (0.8-2.9); LYMPHOCYTES % 22.1 % (15.0-51.0); MEAN CORPUSCULAR HGB CONC 31.7 g/dl (32.0-37.0); MEAN CORPUSCULAR VOLUME 91.4 fl (82.0-101.0); MEAN PLATELET VOLUME 10.9 fl (7.4-10.4); MONOCYTE # 0.4 10^3/ul (0.3-0.9); MONOCYTES % 9.1 % (0.0-11.0); NEUTROPHIL # 3.1 10^3/ul (1.6-7.5); NEUTROPHILS % 64.7 % (39.0-77.0); POSITIVE DIFF @See below; RED BLOOD COUNT 3.38 10^6/ul (4.70-6.10); RED CELL DISTRIBUTION WIDTH 15.8 % (11.5-14.5)
[2018-01-11 06:30] LABS: WHITE BLOOD COUNT 4.8 10^3/ul (4.8-10.8)
[2018-01-11 06:50] LABS: ANION GAP 7 (5-13); BLOOD UREA NITROGEN 3 mg/dl (7-20); CALCIUM 8.6 mg/dl (8.4-10.2); CARBON DIOXIDE 32 mmol/L (21-31); CHLORIDE 98 mmol/L (97-110); CREATININE 0.34 mg/dl (0.61-1.24); GLUCOSE 100 mg/dl (70-220); POTASSIUM 4.6 mmol/L (3.5-5.1); SODIUM 137 mmol/L (135-144)
[2018-01-11] MEDS: Insulin NOVOLOG SS MILD Algorithm (SS with meals and bedtime) SC ×3 (07:00→17:30)
[2018-01-11] MEDS: PANTOPRAZOLE 40 MG INJ IV (07:02)
[2018-01-11] MEDS: DOCUSATE SODIUM 100 MG CAP PO (08:29)
[2018-01-11] MEDS: QUETIAPINE 25 MG TAB PO (08:30)
[2018-01-11] MEDS: SPIRONOLACTONE 25 MG TAB PO (08:30)
[2018-01-11] MEDS: ASPIRIN 81 MG TAB PO (08:32)
[2018-01-11] MEDS: DONEPEZIL 10 MG TAB PO (08:32)
[2018-01-11] MEDS: LINAGLIPTIN 5 MG TABLET PO (08:32)
[2018-01-11] MEDS: MEMANTINE 5 MG TAB PO (08:33)
[2018-01-11] MEDS: ESCITALOPRAM 10 MG TAB PO (08:33)
[2018-01-11] MEDS: SOD PHOS MONO/DIBAS 250 MG TAB PO ×2 (08:34→13:46)
[2018-01-11] MEDS: MAGNESIUM OXIDE 400 MG TAB PO (08:34)
[2018-01-11] MEDS: FUROSEMIDE 20 MG TAB PO (08:36)
[2018-01-11] MEDS: LISINOPRIL 5 MG TAB PO (08:37)
[2018-01-11] MEDS: DILTIAZEM (CD) 180 MG CAP PO (08:37)
[2018-01-11] MEDS: NYSTATIN SUSP 5 ML CUP PO ×3 (08:37→17:00)
[2018-01-11] MEDS: ENOXAPARIN 40 MG/0.4 ML SYG SC (08:42)
[2018-01-11] MEDS: HYPROMELLOSE 0.5% 15 ML OPH BOTH EYES (08:44)
[2018-01-11] MEDS: LEVETIRACETAM IV 1,250 MG in DEXTROSE 5% 100 ML IVPB (08:44)
[2018-01-11 09:08] LABS: PLATELET COUNT 181 10^3/UL (140-415)
[2018-01-11] MEDS: SOD CHLORIDE 0.9% 1,000 ML IV (10:24)
[2018-01-11] MEDS: MAGNESIUM SULFATE 2 GM/50 ML 50 ML IVPB (17:00)
== END 2018-01-11 18:30 | DRG 871 ==
LOC: 6WM 18:53 → ICU 01-06 16:05 → 6WM 01-08 11:40 → E/R 11:57 → 6WM 17:26
PROVIDERS: Internal Medicine
PROC: 4A133R1 Monitoring of Arterial Saturation, Peripheral, Percutaneous Approach (ICD-10-PCS; principal; 2017-12-23)
PROC: 5A09557 Assistance with Respiratory Ventilation, Greater than 96 Consecutive Hours, Continuous Positive Airway Pressure (ICD-10-PCS; 2017-12-23)
DX: A41.9 Sepsis, unspecified organism (principal); J96.02 Acute respiratory failure with hypercapnia; J96.01 Acute respiratory failure with hypoxia; G93.41 Metabolic encephalopathy; R65.21 Severe sepsis with septic shock; I50.33 Acute on chronic diastolic (congestive) heart failure; J18.9 Pneumonia, unspecified organism; N10 Acute pyelonephritis; F02.81 Dementia in other diseases classified elsewhere, unspecified severity, with behavioral disturbance; I47.1 Supraventricular tachycardia; J44.1 Chronic obstructive pulmonary disease with (acute) exacerbation; K56.7 Ileus, unspecified; J44.0 Chronic obstructive pulmonary disease with (acute) lower respiratory infection; E83.42 Hypomagnesemia; N40.0 Benign prostatic hyperplasia without lower urinary tract symptoms; E11.9 Type 2 diabetes mellitus without complications; G40.909 Epilepsy, unspecified, not intractable, without status epilepticus; E78.5 Hyperlipidemia, unspecified; D64.9 Anemia, unspecified; E87.5 Hyperkalemia; R47.02 Dysphasia; E11.43 Type 2 diabetes mellitus with diabetic autonomic (poly)neuropathy; K31.84 Gastroparesis; G30.9 Alzheimer's disease, unspecified; I11.0 Hypertensive heart disease with heart failure; Z79.4 Long term (current) use of insulin; Z88.0 Allergy status to penicillin; Z99.81 Dependence on supplemental oxygen; Z93.3 Colostomy status; Z79.82 Long term (current) use of aspirin; Z74.01 Bed confinement status; Z87.891 Personal history of nicotine dependence; Z86.73 Personal history of transient ischemic attack (TIA), and cerebral infarction without residual deficits
CPT/HCPCS: 36415; 36600; 71045; 71275; 74018; 74177; 74230; 74250; 80048; 80053; 81001; 82550; 82553; 82803; 82962; 83605; 83690; 83735; 84100; 84484; 85014; 85018; 85025; 85610; 85730; 87040; 87081; 87086; 90686; 92526; 92610; 92611; 93005; 94640; 94660; 94664; 96374; 99285-25

== ENCOUNTER 2018-01-20 12:29 | Inpatient (IN) | payer MEDICARE, OTHER ==
[2018-01-20] MEDS: ACETAMINOPHEN 325 MG TAB PO ×2 (12:55→17:53)
[2018-01-20] MEDS ORDERED: ACETAMINOPHEN 325 MG TAB PO (13:00)
[2018-01-20 13:08] LABS: ABNORMAL IP MESSAGE 1; ADD MAN DIFF? NO; BASOPHILS % 0.2 % (0.0-2.0); EOSINOPHILS # 0.1 10^3/ul (0.0-0.5); EOSINOPHILS % 1.1 % (0.0-7.0); HEMATOCRIT 32.5 % (42.0-52.0); HEMOGLOBIN 10.4 g/dl (14.0-18.0); LYMPHOCYTES # 0.6 10^3/ul (0.8-2.9); LYMPHOCYTES % 9.6 % (15.0-51.0); MEAN CORPUSCULAR HEMOGLOBIN 28.7 pg (29.0-33.0); MEAN CORPUSCULAR VOLUME 89.5 fl (82.0-101.0); MEAN PLATELET VOLUME 10.1 fl (7.4-10.4); MONOCYTE # 0.7 10^3/ul (0.3-0.9); MONOCYTES % 10.9 % (0.0-11.0); NEUTROPHIL # 4.7 10^3/ul (1.6-7.5); NEUTROPHILS % 77.4 % (39.0-77.0); PLATELET COUNT 379 10^3/UL (140-415); POSITIVE DIFF @See below; RED BLOOD COUNT 3.63 10^6/ul (4.70-6.10)
[2018-01-20 13:08] LABS: WHITE BLOOD COUNT 6.1 10^3/ul (4.8-10.8)
[2018-01-20 13:24] LABS: ANION GAP 14 (5-13); BLOOD UREA NITROGEN 16 mg/dl (7-20); CALCIUM 9.3 mg/dl (8.4-10.2); CARBON DIOXIDE 26 mmol/L (21-31); CHLORIDE 96 mmol/L (97-110); CREATININE 0.55 mg/dl (0.61-1.24); GLUCOSE 188 mg/dl (70-220); POTASSIUM 4.6 mmol/L (3.5-5.1); SODIUM 136 mmol/L (135-144)
[2018-01-20 13:27] LABS: INR 1.07; PT RATIO 1.1
[2018-01-20 13:40] LABS: TROPONIN-I < 0.012 ng/ml (0.000-0.120)
[2018-01-20] MEDS: SODIUM CHLORIDE 0.9% 1L BAG IV* (13:45)
[2018-01-20] MEDS: ONDANSETRON 4 MG INJ IV (13:45)
[2018-01-20] MEDS: AZTREONAM 1 GM/NS (PMX) 50 ML IVPB (13:48)
[2018-01-20] MEDS: ACETAMINOPHEN 650 MG SUPP PR (13:54)
[2018-01-20 14:06] LABS: MAGNESIUM 0.9 mg/dl (1.7-2.5)
[2018-01-20] MEDS: VANCOMYCIN 1 GM (PMX) 250 ML IVPB (14:10)
[2018-01-20] MEDS: MAGNESIUM SULFATE 2 GM/50 ML 50 ML IVPB (14:30)
[2018-01-20] MEDS ORDERED: VANCOMYCIN IV PER PHARMACY XX (16:30)
[2018-01-20 16:44] LABS: LACTIC ACID 3.7 mmol/L (0.5-2.0)
[2018-01-20] MEDS: SOD CHLORIDE 0.9% 1,000 ML IV (16:53)
[2018-01-20] MEDS ORDERED: DEXTROSE 50% 50 ML SYRINGE IV ×2 (17:00)
[2018-01-20] MEDS ORDERED: GLUCOSE GEL 15 GRAM TUBE PO ×2 (17:00)
[2018-01-20] MEDS: LINAGLIPTIN 5 MG TABLET PO (17:00)
[2018-01-20] MEDS ORDERED: GLUCOSE GEL 15 GRAM TUBE BUCCAL (17:00)
[2018-01-20] MEDS ORDERED: GLUCAGON 1 MG INJ IM (17:00)
[2018-01-20] MEDS: INSULIN ASPART [NOVOLOG] 3 ML PEN SC ×2 (17:09→21:00)
[2018-01-20 17:17] LABS: HEMOGLOBIN A1C 6.1 % (0-5.9)
[2018-01-20] MEDS: MAGNESIUM SULFATE 4 GM in DEXTROSE 5% 100 ML IV (17:53)
[2018-01-20] MEDS ORDERED: CEFEPIME 1GM/50 ML (PMX) 50 ML IVPB (21:00)
[2018-01-20] MEDS: HYPROMELLOSE 0.5% 15 ML OPH BOTH EYES (21:00)
[2018-01-20] MEDS: MEROPENEM 1 GM/50ML(PMX) 50 ML IVPB (21:57)
[2018-01-20] MEDS: LEVETIRACETAM (100 MG/ML) 5ML CUP PO (21:58)
[2018-01-20] MEDS: SOD PHOS MONO/DIBAS 250 MG TAB PO (21:58)
[2018-01-20] MEDS: ATORVASTATIN 20 MG TAB PO (21:58)
[2018-01-20] MEDS: DOCUSATE SODIUM 100 MG CAP PO (21:59)
[2018-01-20] MEDS: FERROUS SULFATE (EC) 325 MG TAB PO ×2 (21:59→22:13)
[2018-01-20] MEDS: MAGNESIUM OXIDE 400 MG TAB PO (21:59)
[2018-01-20] MEDS: VANCOMYCIN 1 GM 250 ML IVPB (22:50)
[2018-01-21] MEDS: ALBUTEROL/IPRATROPIUM (NEB) 3 ML AMP NEB (01:50)
[2018-01-21] MEDS: ACCU-CHEK XX (01:50)
[2018-01-21] MEDS ORDERED: GUAIFENESIN/CODEINE 5ML CUP PO (05:00)
[2018-01-21] MEDS: SOD CHLORIDE 0.9% 500 ML IV (05:30)
[2018-01-21 05:48] LABS: AADO2 Arterial 329.5 mmHg (7.0-24.0); Allen Test ACCEPTAB; Arterial Base Excess 0.7 mmol/L (-3.0-3); Arterial COHb 0.1 % (0.0-3.0); Arterial Fraction of Oxyhgb 89.6 % (93.0-99.0); Arterial HCO3 25.3 mmol/L (22.0-26.0); Arterial MetHb 0.3 % (0.0-1.5); Arterial Total Hemglobin 11.1 g/dl (12.0-18.0); Arterial pCO2 40.7 mmhg (35-45); MODE MASK - SIMPLE; Site Right Radial
[2018-01-21 06:31] LABS: HEMATOCRIT 27.3 % (42.0-52.0); HEMOGLOBIN 8.6 g/dl (14.0-18.0); MEAN CORPUSCULAR HEMOGLOBIN 29.1 pg (29.0-33.0); MEAN CORPUSCULAR HGB CONC 31.5 g/dl (32.0-37.0); MEAN CORPUSCULAR VOLUME 92.2 fl (82.0-101.0); MEAN PLATELET VOLUME 10.6 fl (7.4-10.4); PLATELET COUNT 266 10^3/UL (140-415); POSITIVE DIFF @See below; RED BLOOD COUNT 2.96 10^6/ul (4.70-6.10); RED CELL DISTRIBUTION WIDTH 16.6 % (11.5-14.5)
[2018-01-21 06:31] LABS: WHITE BLOOD COUNT 10.3 10^3/ul (4.8-10.8)
[2018-01-21] MEDS: MEROPENEM 1 GM/50ML(PMX) 50 ML IVPB ×3 (06:49→21:31)
[2018-01-21] MEDS: SOD CHLORIDE 0.9% 1,000 ML IV ×3 (06:49→19:40)
[2018-01-21 06:52] LABS: ADD MAN DIFF? YES
[2018-01-21 06:53] LABS: LACTIC ACID 3.1 mmol/L (0.5-2.0)
[2018-01-21] MEDS: VANCOMYCIN 1 GM 250 ML IVPB ×2 (06:53→14:18)
[2018-01-21 06:55] LABS: ALANINE AMINOTRANSFERASE 25 IU/L (13-69); ALBUMIN/GLOBULIN RATIO 1.25; ALKALINE PHOSPHATASE 60 IU/L (42-121); ANION GAP 10 (5-13); ASPARTATE AMINO TRANSFERASE 25 IU/L (15-46); BILIRUBIN,INDIRECT 0.2 mg/dl (0-1.1); BILIRUBIN,TOTAL 0.2 mg/dl (0.2-1.3); BLOOD UREA NITROGEN 18 mg/dl (7-20); CALCIUM 7.6 mg/dl (8.4-10.2); CARBON DIOXIDE 26 mmol/L (21-31); CHLORIDE 101 mmol/L (97-110); CREATININE 0.59 mg/dl (0.61-1.24); GLUCOSE 130 mg/dl (70-220); POTASSIUM 4.4 mmol/L (3.5-5.1); SODIUM 137 mmol/L (135-144); TOTAL PROTEIN 5.4 g/dl (6.1-8.1)
[2018-01-21] MEDS: INSULIN ASPART [NOVOLOG] 3 ML PEN SC ×4 (07:35→21:00)
[2018-01-21] MEDS: IPRATROPIUM (NEB) 0.5 MG/2.5 ML AMP HHN ×3 (07:40→19:41)
[2018-01-21] MEDS ORDERED: PHENYLephrine 40 MG in DEXTROSE 5% 496 ML IV (08:00)
[2018-01-21 08:42] LABS: MAGNESIUM 1.6 mg/dl (1.7-2.5)
[2018-01-21] MEDS ORDERED: MEMANTINE 5 MG TAB PO (09:00)
[2018-01-21] MEDS ORDERED: FUROSEMIDE 20 MG TAB PO (09:00)
[2018-01-21] MEDS ORDERED: SPIRONOLACTONE 25 MG TAB PO (09:00)
[2018-01-21 09:01] LABS: ANISOCYTOSIS 1+ (0-0); BAND NEUTROPHILS #M 2.6 10^3/ul (0.0-0.6); BAND NEUTROPHILS % (M) 26 % (0-4); BASOPHIL #M 0.1 10^3/ul (0.0-0.0); BASOPHILS % (M) 1 % (0-2); LYMPHOCYTES #M 1.8 10^3/ul (0.8-2.9); LYMPHOCYTES % (M) 18 % (15-51); MICROCYTOSIS 1+ (0-0); MONOCYTE #M 1.1 10^3/ul (0.3-0.9); MONOCYTES % (M) 11 % (0-11); OVALOCYTES 1+ (0-0); PLATELET ESTIMATE NORMAL; POIKILOCYTOSIS 1+ (0-0); POLYCHROMASIA 1+ (0-0); REACTIVE LYMPHOCYTES #M 0.2 10^3/ul (0.0-0.0); REACTIVE LYMPHOCYTES% (M) 2 % (0-0); SEG NEUT #M 4.6 10^3/ul (1.6-7.5); SEGMENTED NEUTROPHILS (M) % 42 % (39-77); SMUDGE%M 9 % (0-0); SPHEROCYTES 1+ (0-0)
[2018-01-21] MEDS: DOCUSATE SODIUM 100 MG CAP PO (09:28)
[2018-01-21] MEDS: ENOXAPARIN 40 MG/0.4 ML SYG SC (09:28)
[2018-01-21] MEDS: FERROUS SULFATE (EC) 325 MG TAB PO ×2 (09:28→21:31)
[2018-01-21] MEDS: ASPIRIN 81 MG TAB PO (09:28)
[2018-01-21] MEDS: LINAGLIPTIN 5 MG TABLET PO (09:29)
[2018-01-21] MEDS: ESCITALOPRAM 10 MG TAB PO (09:30)
[2018-01-21] MEDS: MAGNESIUM OXIDE 400 MG TAB PO ×2 (09:37→21:31)
[2018-01-21] MEDS: LEVETIRACETAM (100 MG/ML) 5ML CUP PO ×2 (09:38→21:31)
[2018-01-21] MEDS: LIDOCAINE 1% (MPF) 5 ML VIAL SC (10:11)
[2018-01-21] MEDS: QUETIAPINE 25 MG TAB PO (12:42)
[2018-01-21] MEDS: DONEPEZIL 10 MG TAB PO (12:42)
[2018-01-21] MEDS: HYPROMELLOSE 0.5% 15 ML OPH BOTH EYES ×2 (12:42→21:30)
[2018-01-21] MEDS: SOD PHOS MONO/DIBAS 250 MG TAB PO ×3 (12:45→21:31)
[2018-01-21] MEDS: MAGNESIUM SULFATE 3 GM in DEXTROSE 5% 100 ML IVPB ×2 (12:57→18:46)
[2018-01-21] MEDS: MEMANTINE 10 MG TAB PO (13:54)
[2018-01-21 14:08] LABS: VANCOMYCIN,TROUGH 7.9 ug/ml (10.0-20.0)
[2018-01-21] MEDS: ATORVASTATIN 20 MG TAB PO (21:30)
[2018-01-21] MEDS: DOCUSATE SODIUM 10 MG/ML (10ML CUP) PO (21:30)
[2018-01-21] MEDS: VANCOMYCIN 1.25 GM in SOD CHLORIDE 0.9% 250 ML IVPB (21:41)
[2018-01-22 00:49] LABS: ADD UMIC YES; UR ASCORBIC ACID NEGATIVE (NEGATIVE); UR BILIRUBIN (Dip) NEGATIVE (NEGATIVE); UR BLOOD (Dip) 1+ mg/dL (NEGATIVE); UR CLARITY SLIGHTLY CLOUDY (CLEAR); UR COLOR YELLOW (YELLOW); UR GLUCOSE (Dip) 1+ mg/dL (NEGATIVE); UR KETONES (Dip) NEGATIVE (NEGATIVE); UR LEUKOCYTE ESTERASE (Dip) 1+ Leu/ul (NEGATIVE); UR MUCUS FEW /HPF (NONE SEEN); UR NITRITE (Dip) NEGATIVE (NEGATIVE); UR RBC 2 /HPF (0-5); UR SPECIFIC GRAVITY (Dip) 1.009 (1.003-1.030); UR TOTAL PROTEIN (Dip) NEGATIVE (NEGATIVE); UR UROBILINOGEN (Dip) NEGATIVE (NEGATIVE); UR WBC 9 /HPF (0-5)
[2018-01-22] MEDS: ACCU-CHEK XX (01:16)
[2018-01-22 01:23] LABS: SODIUM,URINE RANDOM 60 mmol/L (30-90)
[2018-01-22 01:23] LABS: CREATININE,URINE RANDOM 34.36 mg/dl (20-370)
[2018-01-22 04:53] LABS: ADD MAN DIFF? NO
[2018-01-22 05:04] LABS: WHITE BLOOD COUNT 10.3 10^3/ul (4.8-10.8)
[2018-01-22 05:04] LABS: BASOPHILS % 0.2 % (0.0-2.0); EOSINOPHILS # 0.1 10^3/ul (0.0-0.5); EOSINOPHILS % 0.9 % (0.0-7.0); HEMATOCRIT 24.3 % (42.0-52.0); HEMOGLOBIN 7.9 g/dl (14.0-18.0); LYMPHOCYTES # 1.1 10^3/ul (0.8-2.9); LYMPHOCYTES % 10.9 % (15.0-51.0); MEAN CORPUSCULAR HEMOGLOBIN 29.4 pg (29.0-33.0); MEAN CORPUSCULAR HGB CONC 32.5 g/dl (32.0-37.0); MEAN CORPUSCULAR VOLUME 90.3 fl (82.0-101.0); MEAN PLATELET VOLUME 10.4 fl (7.4-10.4); MONOCYTE # 1.3 10^3/ul (0.3-0.9); MONOCYTES % 12.4 % (0.0-11.0); NEUTROPHIL # 7.5 10^3/ul (1.6-7.5); NEUTROPHILS % 72.9 % (39.0-77.0); PLATELET COUNT 278 10^3/UL (140-415); POSITIVE DIFF @See below; RED BLOOD COUNT 2.69 10^6/ul (4.70-6.10); RED CELL DISTRIBUTION WIDTH 16.6 % (11.5-14.5)
[2018-01-22] MEDS: VANCOMYCIN 1.25 GM in SOD CHLORIDE 0.9% 250 ML IVPB ×3 (05:18→21:30)
[2018-01-22] MEDS: MEROPENEM 1 GM/50ML(PMX) 50 ML IVPB ×3 (05:18→21:17)
[2018-01-22 05:29] LABS: ANION GAP 6 (5-13); BLOOD UREA NITROGEN 9 mg/dl (7-20); CALCIUM 7.8 mg/dl (8.4-10.2); CARBON DIOXIDE 27 mmol/L (21-31); CHLORIDE 101 mmol/L (97-110); CREATININE 0.39 mg/dl (0.61-1.24); GLUCOSE 106 mg/dl (70-220); MAGNESIUM 2.4 mg/dl (1.7-2.5); PHOSPHORUS 2.5 mg/dl (2.5-4.9); POTASSIUM 3.8 mmol/L (3.5-5.1); SODIUM 134 mmol/L (135-144)
[2018-01-22] MEDS: INSULIN ASPART [NOVOLOG] 3 ML PEN SC ×4 (07:35→20:42)
[2018-01-22] MEDS: IPRATROPIUM (NEB) 0.5 MG/2.5 ML AMP HHN ×3 (07:47→19:12)
[2018-01-22] MEDS: ADENOSINE 6 MG INJ IV (08:00)
[2018-01-22] MEDS: SOD CHLORIDE 0.9% 1,000 ML IV ×2 (09:12→22:20)
[2018-01-22] MEDS: HYPROMELLOSE 0.5% 15 ML OPH BOTH EYES ×2 (09:14→21:17)
[2018-01-22] MEDS: LEVETIRACETAM (100 MG/ML) 5ML CUP PO ×2 (09:15→20:40)
[2018-01-22] MEDS: LINAGLIPTIN 5 MG TABLET PO (09:15)
[2018-01-22] MEDS: DOCUSATE SODIUM 10 MG/ML (10ML CUP) PO ×2 (09:15→20:40)
[2018-01-22] MEDS: ASPIRIN 81 MG TAB PO (09:15)
[2018-01-22] MEDS: FERROUS SULFATE (EC) 325 MG TAB PO ×2 (09:16→20:41)
[2018-01-22] MEDS: MEMANTINE 10 MG TAB PO (09:16)
[2018-01-22] MEDS: DONEPEZIL 10 MG TAB PO (09:16)
[2018-01-22] MEDS: ESCITALOPRAM 10 MG TAB PO (09:16)
[2018-01-22] MEDS: MAGNESIUM OXIDE 400 MG TAB PO ×2 (09:16→20:41)
[2018-01-22] MEDS: QUETIAPINE 25 MG TAB PO (09:16)
[2018-01-22] MEDS: SOD PHOS MONO/DIBAS 250 MG TAB PO ×3 (09:22→20:55)
[2018-01-22] MEDS: ENOXAPARIN 40 MG/0.4 ML SYG SC (09:23)
[2018-01-22 10:23] LABS: AADO2 Arterial 120.7 mmHg (7.0-24.0); Allen Test ACCEPTAB; Arterial Base Excess -2.4 mmol/L (-3.0-3); Arterial Blood Gas Oxygen Sat 93.1 mmHG (95.0-100.0); Arterial COHb 0.3 % (0.0-3.0); Arterial Fraction of Oxyhgb 92.5 % (93.0-99.0); Arterial HCO3 23.7 mmol/L (22.0-26.0); Arterial MetHb 0.3 % (0.0-1.5); Blood Gas IEPAP 18/6; Blood Gas PS 12; MODE MASK - BIPAP; Site Right Radial
[2018-01-22 13:58] LABS: Allen Test ACCEPTAB; Arterial Base Excess 3.2 mmol/L (-3.0-3); Arterial Blood Gas Oxygen Sat 97.6 mmHG (95.0-100.0); Arterial COHb 0.3 % (0.0-3.0); Arterial HCO3 26.3 mmol/L (22.0-26.0); Arterial MetHb 0.3 % (0.0-1.5); Arterial Total Hemglobin 9.1 g/dl (12.0-18.0); Arterial pCO2 34.4 mmhg (35-45); MODE HFNC; Site Right Radial
[2018-01-22] MEDS: ATORVASTATIN 20 MG TAB PO (20:41)
[2018-01-23] MEDS: ACCU-CHEK XX (01:54)
[2018-01-23] MEDS: SOD CHLORIDE 0.9% 1,000 ML IV ×2 (02:01→22:32)
[2018-01-23] MEDS: ADENOSINE 6 MG INJ IV (04:00)
[2018-01-23] MEDS: DILTIAZEM (CD) 180 MG CAP PO (04:32)
[2018-01-23 05:18] LABS: ABNORMAL IP MESSAGE 1; HEMOGLOBIN 7.5 g/dl (14.0-18.0); MEAN CORPUSCULAR HEMOGLOBIN 29.1 pg (29.0-33.0); MEAN CORPUSCULAR HGB CONC 32.6 g/dl (32.0-37.0); MEAN CORPUSCULAR VOLUME 89.1 fl (82.0-101.0); PLATELET COUNT 213 10^3/UL (140-415); POSITIVE DIFF @See below; RED BLOOD COUNT 2.58 10^6/ul (4.70-6.10); RED CELL DISTRIBUTION WIDTH 16.1 % (11.5-14.5)
[2018-01-23 05:18] LABS: WHITE BLOOD COUNT 9.3 10^3/ul (4.8-10.8)
[2018-01-23 05:35] LABS: ADD MAN DIFF? YES
[2018-01-23] MEDS: VANCOMYCIN 1.25 GM in SOD CHLORIDE 0.9% 250 ML IVPB (05:42)
[2018-01-23] MEDS: MEROPENEM 1 GM/50ML(PMX) 50 ML IVPB ×3 (05:42→21:58)
[2018-01-23 06:31] LABS: ANION GAP 7 (5-13); BLOOD UREA NITROGEN 4 mg/dl (7-20); CALCIUM 7.7 mg/dl (8.4-10.2); CARBON DIOXIDE 26 mmol/L (21-31); CHLORIDE 103 mmol/L (97-110); CREATININE 0.32 mg/dl (0.61-1.24); GLUCOSE 90 mg/dl (70-220); MAGNESIUM 1.6 mg/dl (1.7-2.5); POTASSIUM 3.5 mmol/L (3.5-5.1); SODIUM 136 mmol/L (135-144)
[2018-01-23] MEDS: IPRATROPIUM (NEB) 0.5 MG/2.5 ML AMP HHN ×3 (07:37→19:25)
[2018-01-23] MEDS: LEVETIRACETAM (100 MG/ML) 5ML CUP PO ×2 (08:32→21:47)
[2018-01-23] MEDS: ESCITALOPRAM 10 MG TAB PO (08:32)
[2018-01-23] MEDS: MEMANTINE 10 MG TAB PO (08:32)
[2018-01-23] MEDS: FERROUS SULFATE (EC) 325 MG TAB PO ×2 (08:32→21:46)
[2018-01-23] MEDS: ASPIRIN 81 MG TAB PO (08:32)
[2018-01-23] MEDS: SOD PHOS MONO/DIBAS 250 MG TAB PO ×3 (08:32→21:47)
[2018-01-23] MEDS: DONEPEZIL 10 MG TAB PO (08:32)
[2018-01-23] MEDS: QUETIAPINE 25 MG TAB PO (08:33)
[2018-01-23] MEDS: LINAGLIPTIN 5 MG TABLET PO (08:33)
[2018-01-23] MEDS: DOCUSATE SODIUM 10 MG/ML (10ML CUP) PO ×2 (08:33→21:47)
[2018-01-23] MEDS: INSULIN ASPART [NOVOLOG] 3 ML PEN SC ×4 (08:34→22:10)
[2018-01-23] MEDS: ENOXAPARIN 40 MG/0.4 ML SYG SC (08:35)
[2018-01-23] MEDS: HYPROMELLOSE 0.5% 15 ML OPH BOTH EYES ×2 (08:35→21:48)
[2018-01-23] MEDS: MAGNESIUM OXIDE 400 MG TAB PO ×2 (08:49→21:47)
[2018-01-23] MEDS: MAGNESIUM SULFATE 4 GM/100 ML 100 ML IVPB (08:58)
[2018-01-23 09:09] LABS: ANISOCYTOSIS 1+ (0-0); BAND NEUTROPHILS #M 0.7 10^3/ul (0.0-0.6); BAND NEUTROPHILS % (M) 8 % (0-4); BURR CELLS 1+ (0-0); EOSINOPHILS % (M) 3 % (0-7); LYMPHOCYTES #M 1.3 10^3/ul (0.8-2.9); LYMPHOCYTES % (M) 15 % (15-51); MICROCYTOSIS 1+ (0-0); MONOCYTE #M 0.7 10^3/ul (0.3-0.9); MONOCYTES % (M) 8 % (0-11); MYELOCYTES % (M) 1 % (0-0); OVALOCYTES 1+ (0-0); PLATELET ESTIMATE NORMAL; POIKILOCYTOSIS 1+ (0-0); POLYCHROMASIA 2+ (0-0); SEG NEUT #M 6.1 10^3/ul (1.6-7.5); SEGMENTED NEUTROPHILS (M) % 65 % (39-77); SMUDGE%M 15 % (0-0); TOXIC GRANULATION 1+ (0-0)
[2018-01-23] MEDS: POTASSIUM CHLORIDE 20 MEQ POWDER FOR ORAL SOLN PO (13:36)
[2018-01-23] MEDS: DILTIAZEM 60 MG TAB PO ×2 (13:36→21:47)
[2018-01-23] MEDS: VANCOMYCIN 1 GM 250 ML IVPB ×2 (13:36→22:31)
[2018-01-23] MEDS: ATORVASTATIN 20 MG TAB PO (21:46)
[2018-01-24] MEDS: ACCU-CHEK XX (02:33)
[2018-01-24] MEDS: MEROPENEM 1 GM/50ML(PMX) 50 ML IVPB ×3 (05:39→21:16)
[2018-01-24] MEDS: VANCOMYCIN 1 GM 250 ML IVPB (05:39)
[2018-01-24] MEDS: DILTIAZEM 60 MG TAB PO ×3 (05:40→21:18)
[2018-01-24] MEDS: INSULIN ASPART [NOVOLOG] 3 ML PEN SC ×4 (07:35→21:00)
[2018-01-24] MEDS: DOCUSATE SODIUM 10 MG/ML (10ML CUP) PO ×2 (08:14→21:09)
[2018-01-24] MEDS: LEVETIRACETAM (100 MG/ML) 5ML CUP PO ×2 (08:14→21:09)
[2018-01-24] MEDS: QUETIAPINE 25 MG TAB PO (08:15)
[2018-01-24] MEDS: FERROUS SULFATE (EC) 325 MG TAB PO ×2 (08:15→21:10)
[2018-01-24] MEDS: MAGNESIUM OXIDE 400 MG TAB PO ×2 (08:15→21:10)
[2018-01-24] MEDS: ESCITALOPRAM 10 MG TAB PO (08:15)
[2018-01-24] MEDS: LINAGLIPTIN 5 MG TABLET PO (08:15)
[2018-01-24] MEDS: MEMANTINE 10 MG TAB PO (08:15)
[2018-01-24] MEDS: DONEPEZIL 10 MG TAB PO (08:15)
[2018-01-24] MEDS: SOD PHOS MONO/DIBAS 250 MG TAB PO ×3 (08:15→21:10)
[2018-01-24] MEDS: ASPIRIN 81 MG TAB PO (08:16)
[2018-01-24] MEDS: HYPROMELLOSE 0.5% 15 ML OPH BOTH EYES ×2 (08:16→21:00)
[2018-01-24] MEDS: ENOXAPARIN 40 MG/0.4 ML SYG SC (08:38)
[2018-01-24] MEDS: IPRATROPIUM (NEB) 0.5 MG/2.5 ML AMP HHN ×3 (08:51→21:15)
[2018-01-24 10:10] LABS: ANION GAP 7 (5-13); CALCIUM 8.1 mg/dl (8.4-10.2); CARBON DIOXIDE 28 mmol/L (21-31); CHLORIDE 100 mmol/L (97-110); GLUCOSE 123 mg/dl (70-220); MAGNESIUM 1.6 mg/dl (1.7-2.5); POTASSIUM 3.8 mmol/L (3.5-5.1); SODIUM 135 mmol/L (135-144)
[2018-01-24 10:17] LABS: BLOOD UREA NITROGEN < 2 mg/dl (7-20)
[2018-01-24 15:51] LABS: CREATININE, RANDOM URINE 34 mg/dL (20-320); MICROALBUMIN 0.6 mg/dL; MICROALBUMIN/CREATININE RATIO 18 (<30)
[2018-01-24] MEDS: MAGNESIUM SULFATE 4 GM/100 ML 100 ML IVPB (17:45)
[2018-01-24] MEDS: ATORVASTATIN 20 MG TAB PO (21:10)
[2018-01-24] MEDS: NYSTATIN 30 GM POWDER BTL TOP (21:11)
[2018-01-25] MEDS: ACCU-CHEK XX (02:00)
[2018-01-25] MEDS: MEROPENEM 1 GM/50ML(PMX) 50 ML IVPB ×3 (05:27→22:16)
[2018-01-25] MEDS: DILTIAZEM 60 MG TAB PO ×3 (05:28→22:21)
[2018-01-25] MEDS ORDERED: ALTEPLASE (CATHFLO) 2 MG INJ CATHETER (06:00)
[2018-01-25] MEDS: INSULIN ASPART [NOVOLOG] 3 ML PEN SC ×4 (07:55→21:00)
[2018-01-25] MEDS: LEVETIRACETAM (100 MG/ML) 5ML CUP PO ×2 (08:26→22:13)
[2018-01-25] MEDS: DOCUSATE SODIUM 10 MG/ML (10ML CUP) PO ×2 (08:26→21:00)
[2018-01-25] MEDS: FERROUS SULFATE (EC) 325 MG TAB PO ×2 (08:27→22:19)
[2018-01-25] MEDS: MEMANTINE 10 MG TAB PO (08:27)
[2018-01-25] MEDS: SOD PHOS MONO/DIBAS 250 MG TAB PO ×3 (08:27→22:20)
[2018-01-25] MEDS: ASPIRIN 81 MG TAB PO (08:27)
[2018-01-25] MEDS: QUETIAPINE 25 MG TAB PO (08:27)
[2018-01-25] MEDS: ESCITALOPRAM 10 MG TAB PO (08:27)
[2018-01-25] MEDS: DONEPEZIL 10 MG TAB PO (08:27)
[2018-01-25] MEDS: LINAGLIPTIN 5 MG TABLET PO (08:28)
[2018-01-25] MEDS: MAGNESIUM OXIDE 400 MG TAB PO ×2 (08:28→22:20)
[2018-01-25] MEDS: NYSTATIN 30 GM POWDER BTL TOP ×2 (08:29→21:00)
[2018-01-25] MEDS: IPRATROPIUM (NEB) 0.5 MG/2.5 ML AMP HHN ×3 (08:33→20:17)
[2018-01-25 08:37] LABS: ADD MAN DIFF? NO
[2018-01-25 08:41] LABS: WHITE BLOOD COUNT 8.7 10^3/ul (4.8-10.8)
[2018-01-25 08:41] LABS: BASOPHIL # 0.1 10^3/ul (0.0-0.1); BASOPHILS % 0.6 % (0.0-2.0); EOSINOPHILS # 0.2 10^3/ul (0.0-0.5); EOSINOPHILS % 2.2 % (0.0-7.0); HEMATOCRIT 27.3 % (42.0-52.0); HEMOGLOBIN 8.6 g/dl (14.0-18.0); LYMPHOCYTES # 1.1 10^3/ul (0.8-2.9); LYMPHOCYTES % 12.5 % (15.0-51.0); MEAN CORPUSCULAR HEMOGLOBIN 27.9 pg (29.0-33.0); MEAN CORPUSCULAR HGB CONC 31.5 g/dl (32.0-37.0); MEAN CORPUSCULAR VOLUME 88.6 fl (82.0-101.0); MEAN PLATELET VOLUME 12.1 fl (7.4-10.4); MONOCYTES % 10.9 % (0.0-11.0); NEUTROPHIL # 6.1 10^3/ul (1.6-7.5); NEUTROPHILS % 70.2 % (39.0-77.0); PLATELET COUNT 213 10^3/UL (140-415); RED BLOOD COUNT 3.08 10^6/ul (4.70-6.10); RED CELL DISTRIBUTION WIDTH 16.2 % (11.5-14.5)
[2018-01-25] MEDS: HYPROMELLOSE 0.5% 15 ML OPH BOTH EYES ×2 (09:00→21:00)
[2018-01-25] MEDS: ENOXAPARIN 40 MG/0.4 ML SYG SC (09:14)
[2018-01-25 09:19] LABS: ANION GAP 7 (5-13); CALCIUM 8.6 mg/dl (8.4-10.2); CARBON DIOXIDE 33 mmol/L (21-31); CHLORIDE 99 mmol/L (97-110); CREATININE 0.29 mg/dl (0.61-1.24); GLUCOSE 112 mg/dl (70-220); MAGNESIUM 1.8 mg/dl (1.7-2.5); PHOSPHORUS 4.8 mg/dl (2.5-4.9); SODIUM 139 mmol/L (135-144)
[2018-01-25 09:28] LABS: BLOOD UREA NITROGEN < 2 mg/dl (7-20)
[2018-01-25 13:24] LABS: AADO2 Arterial 85.8 mmHg (7.0-24.0); Allen Test ACCEPTAB; Arterial Base Excess 7.1 mmol/L (-3.0-3); Arterial Blood Gas Oxygen Sat 97.9 mmHG (95.0-100.0); Arterial COHb 0 % (0.0-3.0); Arterial Fraction of Oxyhgb 97.7 % (93.0-99.0); Arterial HCO3 31.5 mmol/L (22.0-26.0); Arterial MetHb 0.2 % (0.0-1.5); Arterial Total Hemglobin 9.2 g/dl (12.0-18.0); Arterial pCO2 44.6 mmhg (35-45); Blood Gas IEPAP 18/6; Blood Gas PS 13; MODE MASK - BIPAP; Site Right Radial
[2018-01-25] MEDS ORDERED: FUROSEMIDE 20 MG INJ (16:40)
[2018-01-25] MEDS: FUROSEMIDE 40 MG INJ IV (17:16)
[2018-01-25] MEDS: MAGNESIUM SULFATE 2 GM/50 ML 50 ML IVPB ×2 (19:30→22:27)
[2018-01-25] MEDS: ATORVASTATIN 20 MG TAB PO (22:21)
[2018-01-25] MEDS: FUROSEMIDE 20 MG INJ IV (22:26)
[2018-01-25] MEDS ORDERED: VITAMIN A & D 5 GM OINT PACKET TOP ×2 (22:58→23:02)
== END 2018-01-26 00:46 | disposition short-term general hospital (02) | DRG 871 ==
LOC: ICU 01-21 04:43 → TEL 01-24 13:31 → E/R 12:29 → 6WM 12:42
PROC: 02HV33Z Insertion of Infusion Device into Superior Vena Cava, Percutaneous Approach (ICD-10-PCS; principal; 2018-01-21)
PROC: B548ZZA Ultrasonography of Superior Vena Cava, Guidance (ICD-10-PCS; 2018-01-21)
DX: A41.9 Sepsis, unspecified organism (principal); J96.01 Acute respiratory failure with hypoxia; I47.1 Supraventricular tachycardia; N39.0 Urinary tract infection, site not specified; I50.32 Chronic diastolic (congestive) heart failure; E87.2 Acidosis; R65.20 Severe sepsis without septic shock; I11.0 Hypertensive heart disease with heart failure; E83.42 Hypomagnesemia; G40.909 Epilepsy, unspecified, not intractable, without status epilepticus; F31.9 Bipolar disorder, unspecified; Z95.5 Presence of coronary angioplasty implant and graft; E78.5 Hyperlipidemia, unspecified; G30.9 Alzheimer's disease, unspecified; F02.80 Dementia in other diseases classified elsewhere, unspecified severity, without behavioral disturbance, psychotic disturbance, mood disturbance, and anxiety; Z74.01 Bed confinement status; B96.5 Pseudomonas (aeruginosa) (mallei) (pseudomallei) as the cause of diseases classified elsewhere
CPT/HCPCS: 36569; 36600; 71045; 76937; 80048; 80053; 80202; 81001; 81003; 82043; 82803; 82962; 83036; 83605; 83735; 84100; 84145; 84155; 84300; 84484; 85025; 85610; 85730; 87040; 87081; 87086; 93005; 93971; 94640; 94660; 94664; 94668; 94669; 99291-25

== ENCOUNTER 2018-03-09 15:57 | Observation (INO) | payer MEDICARE, OTHER ==
[2018-03-09 16:39] LABS: ADD MAN DIFF? NO
[2018-03-09 16:44] LABS: WHITE BLOOD COUNT 6.9 10^3/ul (4.8-10.8)
[2018-03-09 16:44] LABS: BASOPHILS % 0.1 % (0.0-2.0); EOSINOPHILS # 0.2 10^3/ul (0.0-0.5); EOSINOPHILS % 2.8 % (0.0-7.0); HEMATOCRIT 34.9 % (42.0-52.0); HEMOGLOBIN 10.8 g/dl (14.0-18.0); LYMPHOCYTES # 1.4 10^3/ul (0.8-2.9); LYMPHOCYTES % 20.8 % (15.0-51.0); MEAN CORPUSCULAR HGB CONC 30.9 g/dl (32.0-37.0); MEAN CORPUSCULAR VOLUME 87.3 fl (82.0-101.0); MEAN PLATELET VOLUME 10.1 fl (7.4-10.4); MONOCYTE # 0.7 10^3/ul (0.3-0.9); MONOCYTES % 9.8 % (0.0-11.0); NEUTROPHIL # 4.6 10^3/ul (1.6-7.5); NEUTROPHILS % 66.4 % (39.0-77.0); PLATELET COUNT 266 10^3/UL (140-415); RED CELL DISTRIBUTION WIDTH 14.3 % (11.5-14.5)
[2018-03-09] MEDS: SOD CHLORIDE 0.9% 1,000 ML IV (16:59)
[2018-03-09 17:07] LABS: ANION GAP 7 (5-13); BLOOD UREA NITROGEN 13 mg/dl (7-20); CALCIUM 9.4 mg/dl (8.4-10.2); CARBON DIOXIDE 29 mmol/L (21-31); CHLORIDE 99 mmol/L (97-110); CREATININE 0.52 mg/dl (0.61-1.24); GLUCOSE 139 mg/dl (70-220); POTASSIUM 5.3 mmol/L (3.5-5.1); SODIUM 135 mmol/L (135-144)
[2018-03-09 17:08] LABS: MAGNESIUM 1.8 mg/dl (1.7-2.5)
[2018-03-09 17:19] LABS: TROPONIN-I < 0.012 ng/ml (0.000-0.120)
[2018-03-09] MEDS ORDERED: ACETAMINOPHEN 325 MG TAB PO ×2 (17:30→23:00)
[2018-03-09] MEDS ORDERED: ONDANSETRON 4 MG INJ IV (17:30)
[2018-03-09] MEDS ORDERED: ALBUTEROL/IPRATROPIUM (NEB) 3 ML AMP NEB (23:00)
[2018-03-09] MEDS: MAGNESIUM OXIDE 400 MG TAB PO (23:32)
[2018-03-09] MEDS: DOCUSATE SODIUM 100 MG CAP PO (23:32)
[2018-03-09] MEDS: DILTIAZEM (SR) 60 MG CAP PO (23:34)
[2018-03-10] MEDS: MAGNESIUM OXIDE 400 MG TAB PO ×3 (06:49→22:10)
[2018-03-10] MEDS: DILTIAZEM (SR) 60 MG CAP PO ×3 (06:49→22:10)
[2018-03-10 06:50] LABS: CHOLESTEROL 114 mg/dl (100-200)
[2018-03-10 06:50] LABS: HDL CHOLESTEROL 56 mg/dl (31-75); LDL CHOLESTEROL,CALCULATED 41 mg/dl; TRIGLYCERIDES 86 mg/dl (0-149)
[2018-03-10] MEDS: SOD PHOS MONO/DIBAS 250 MG TAB PO (08:59)
[2018-03-10] MEDS: DONEPEZIL 10 MG TAB PO (08:59)
[2018-03-10] MEDS: LEVETIRACETAM (100 MG/ML) 5ML CUP PO ×2 (08:59→20:50)
[2018-03-10] MEDS: LINAGLIPTIN 5 MG TABLET PO (08:59)
[2018-03-10] MEDS: ASPIRIN 81 MG TAB PO (09:00)
[2018-03-10] MEDS: AMILORIDE 5 MG TAB PO (09:00)
[2018-03-10] MEDS: ESCITALOPRAM 10 MG TAB PO (09:00)
[2018-03-10] MEDS: QUETIAPINE 25 MG TAB PO (09:00)
[2018-03-10] MEDS: DOCUSATE SODIUM 100 MG CAP PO ×2 (09:00→20:51)
[2018-03-10] MEDS: MEMANTINE 10 MG TAB PO (09:00)
[2018-03-10] MEDS: ENOXAPARIN 40 MG/0.4 ML SYG SC (09:09)
[2018-03-10] MEDS: ATORVASTATIN 20 MG TAB PO (20:50)
[2018-03-11] MEDS: MAGNESIUM OXIDE 400 MG TAB PO ×2 (06:50→14:56)
[2018-03-11] MEDS: DILTIAZEM (SR) 60 MG CAP PO ×2 (06:51→14:57)
[2018-03-11] MEDS: LEVETIRACETAM (100 MG/ML) 5ML CUP PO (08:54)
[2018-03-11] MEDS: DOCUSATE SODIUM 100 MG CAP PO (08:55)
[2018-03-11] MEDS: SOD PHOS MONO/DIBAS 250 MG TAB PO (08:55)
[2018-03-11] MEDS: ESCITALOPRAM 10 MG TAB PO (08:55)
[2018-03-11] MEDS: DONEPEZIL 10 MG TAB PO (08:55)
[2018-03-11] MEDS: QUETIAPINE 25 MG TAB PO (08:55)
[2018-03-11] MEDS: MEMANTINE 10 MG TAB PO (08:55)
[2018-03-11] MEDS: LINAGLIPTIN 5 MG TABLET PO (08:55)
[2018-03-11] MEDS: ASPIRIN 81 MG TAB PO (08:56)
[2018-03-11] MEDS: ENOXAPARIN 40 MG/0.4 ML SYG SC (09:09)
[2018-03-11] MEDS: AMILORIDE 5 MG TAB PO (12:03)
[2018-03-11 13:13] LABS: ADD MAN DIFF? NO
[2018-03-11 13:17] LABS: WHITE BLOOD COUNT 5.4 10^3/ul (4.8-10.8)
[2018-03-11 13:17] LABS: BASOPHILS % 0.2 % (0.0-2.0); EOSINOPHILS # 0.1 10^3/ul (0.0-0.5); EOSINOPHILS % 2.6 % (0.0-7.0); HEMATOCRIT 32.8 % (42.0-52.0); HEMOGLOBIN 10.2 g/dl (14.0-18.0); LYMPHOCYTES # 1.5 10^3/ul (0.8-2.9); LYMPHOCYTES % 26.9 % (15.0-51.0); MEAN CORPUSCULAR HGB CONC 31.1 g/dl (32.0-37.0); MEAN CORPUSCULAR VOLUME 86.8 fl (82.0-101.0); MEAN PLATELET VOLUME 10.4 fl (7.4-10.4); MONOCYTE # 0.6 10^3/ul (0.3-0.9); MONOCYTES % 11.1 % (0.0-11.0); NEUTROPHIL # 3.2 10^3/ul (1.6-7.5); PLATELET COUNT 254 10^3/UL (140-415); RED BLOOD COUNT 3.78 10^6/ul (4.70-6.10); RED CELL DISTRIBUTION WIDTH 14.2 % (11.5-14.5)
[2018-03-11 13:36] LABS: ANION GAP 8 (5-13); BLOOD UREA NITROGEN 14 mg/dl (7-20); CALCIUM 9.2 mg/dl (8.4-10.2); CARBON DIOXIDE 27 mmol/L (21-31); CHLORIDE 100 mmol/L (97-110); CREATININE 0.46 mg/dl (0.61-1.24); GLUCOSE 156 mg/dl (70-220); POTASSIUM 4.5 mmol/L (3.5-5.1); SODIUM 135 mmol/L (135-144)
[2018-03-11 13:37] LABS: MAGNESIUM 1.9 mg/dl (1.7-2.5)
[2018-03-11 13:37] LABS: PHOSPHORUS 3.9 mg/dl (2.5-4.9)
[2018-03-11] MEDS: MAGNESIUM SULFATE 2 GM/50 ML 50 ML IVPB (17:06)
[2018-03-11] MEDS: NYSTATIN 30 GM POWDER BTL TOP (17:06)
== END 2018-03-11 19:36 ==
LOC: E/R 15:57 → TEL 17:22
DX: R55 Syncope and collapse (principal); I47.1 Supraventricular tachycardia; I10 Essential (primary) hypertension; E11.9 Type 2 diabetes mellitus without complications; G40.909 Epilepsy, unspecified, not intractable, without status epilepticus; G30.9 Alzheimer's disease, unspecified; F02.81 Dementia in other diseases classified elsewhere, unspecified severity, with behavioral disturbance; Z86.73 Personal history of transient ischemic attack (TIA), and cerebral infarction without residual deficits; Z79.82 Long term (current) use of aspirin; Z79.4 Long term (current) use of insulin
CPT/HCPCS: 36415; 80048; 80061; 82962; 83735; 84100; 84484; 85025; 87081; 93005; 93880; 97110; 97162; 99217; 99285-25; G0378